=== PATIENT | male | born 1960 | race Caucasian/White ===

== ENCOUNTER 2016-06-23 18:43 | Emergency (ER) | payer BC ==
--- NOTE | 2016-06-23 19:56 | EDM.PDOC ---
ED HPI GENERAL MEDICAL PROBLEM - General Chief Complaint: General Stated Complaint: PT HAS NUMBNESS AND PAIN IN RT LEG,INFECTION Time Seen by Provider: 06/23/16 18:49 Source of Information: Reports: Patient History Limitations: Reports: No limitations - History of Present Illness INITIAL COMMENTS - FREE TEXT/NARRATIVE: Presents reporting some right leg pain. Patient states that the top of the right thigh down to the medial knee is numb and tingling. He has a long history of low back pain and has had three NITA with "instant relief". He was supposed to have an NITA in [place] last week but he didn't have it done because his back was feeling better at the time. He also states that he had a pacemaker insertion last week. He had it done due to left heart failure, ejection fraction of 25%. The procedure and recovery were uncomplicated. This morning he was out with some friends for [place] and felt a little lethargic so he thought he should get that checked out as well. No chest pain, SOB. 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 He has been on both the heart and kidney transplant list. When he was in [place] last week his creatinine was over 4.0. - Related Data Allergies Allergy/AdvReac Type Severity Reaction Status Date / Time No Known Allergies Allergy Verified 02/02/16 18:04 Home Meds: Home Meds Allopurinol [Zyloprim] 100 mg PO DAILY 10/22/15 [History] Enalapril [Vasotec] 20 mg PO BID 10/22/15 [History] Simvastatin [Zocor] 10 mg PO BEDTIME 10/22/15 [History] Aspirin 325 mg PO DAILY 02/02/16 [History] Carvedilol [Coreg] 25 mg PO BID 02/02/16 [History] Fish Oil/[place]-3 Fatty Acids [Fish Oil] 8,000 mg PO DAILY 02/02/16 [History] Furosemide [Lasix] 20 mg PO DAILY 02/02/16 [History] Vilazodone Hydrochloride [Viibryd] 20 mg PO DAILY 02/02/16 [History] Past Medical History HEENT History: Reports: None Cardiovascular History: Reports: High cholesterol, Hypertension, Other (see below) Other Cardiovascular History: Left ventricle weakness, 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 Genitourinary History: Reports: Renal disease Musculoskeletal History: Reports: Gout Psychiatric History: Reports: Anxiety, Depression Other Psychiatric History: on medications but unable to recall Social & Family History - Family History Family Medical History: Noncontributory - Tobacco Use Smoking Status *Q: Never Smoker Second Hand Smoke Exposure: No - Caffeine Use Caffeine Use: Reports: None - Recreational Drug Use Recreational Drug Use: No ED ROS GENERAL - Review of Systems Review Of Systems: See Below Constitutional: Reports: other (lethargy this am). Denies: fever, chills HEENT: Reports: No symptoms Respiratory: Reports: no symptoms. Denies: shortness of breath, cough Cardiovascular: Reports: No symptoms, Blood pressure problem (He states that he usually runs 120/80 since being in the hospital, now 102/71. He is wondering about how much Coreg he is taking.). Denies: Chest pain, Lightheadedness, Palpitations Endocrine: Reports: no symptoms GI/Abdominal: Reports: No symptoms : Reports: no symptoms Musculoskeletal: Reports: back pain (chronic low back pain), other (right anterior theigh tingling and numbness) Skin: Reports: other Neurological: Reports: no symptoms Psychiatric: Reports: No symptoms Hematologic/Lymphatic: Reports: no symptoms Immunologic: Reports: no symptoms ED EXAM, GENERAL - Physical Exam Exam: See Below General Appearance: alert, no apparent distress Ears: normal external exam Nose: normal inspection Throat/Mouth: Normal inspection Head: atraumatic, normocephalic Neck: normal inspection, full range of motion. No: lymphadenopathy (L), lymphadenopathy (R) Respiratory/Chest: no respiratory distress, lungs clear, normal breath sounds, no accessory muscle use Cardiovascular: normal peripheral pulses, regular rate, rhythm, no murmur GI/Abdominal: normal bowel sounds, soft, non tender, no distention Back Exam: normal inspection Extremities: normal inspection Neurological: alert, oriented, no motor/sensory deficits Psychiatric: normal affect, normal mood Skin Exam: Warm, Dry, Intact, Normal color, No rash, Other (The right upper chest and left submammary incisions are clean, soft, dry and granulating without erythema, swelling or exudate) Lymphatic: no adenopathy Course - Vital Signs Last Recorded V/S: Last Vital Signs Temp 35.8 C 06/23/16 18:57 Pulse 77 06/23/16 20:11 Resp 16 06/23/16 20:11 BP 116/62 06/23/16 20:11 Pulse Ox 94 L 06/23/16 20:11 - Orders/Labs/Meds Orders: Active Orders 24 hr Category Date Time Status Sodium Chloride 0.9% [Normal Saline] 250 ml Med 06/23/16 20:30 Active IV STAT Medication Orders Sodium Chloride (Normal Saline) 250 mls @ 999 mls/hr IV STAT JIMENA Labs: Laboratory Tests 06/23/16 06/23/16 06/23/16 Range/Units 19:47 19:47 19:47 WBC 5.98 (4.0-11.0) K/uL RBC 3.65 L (4.50-5.90) M/uL Hgb 11.8 L (13.0-17.0) g/dL Hct 35.6 L (38.0-50.0) % MCV 97.5 (80.0-98.0) fL MCH 32.3 H (27.0-32.0) pg MCHC 33.1 (31.0-37.0) g/dL RDW Std Deviation 45.1 (28.0-62.0) fl RDW Coeff of Marcus 13 (11.0-15.0) % Plt Count 157 (150-400) K/uL MPV 10.30 (7.40-12.00) fL Neut % (Auto) 69.1 (48.0-80.0) % Lymph % (Auto) 20.2 (16.0-40.0) % [place] % (Auto) 6.5 (0.0-15.0) % Eos % (Auto) 3.7 (0.0-7.0) % Baso % (Auto) 0.5 (0.0-1.5) % Neut # 4.1 (1.4-5.7) K/uL Lymph # 1.2 (0.6-2.4) K/uL J[place] # 0.4 (0.0-0.8) K/uL Eos # 0.2 (0.0-0.7) K/uL Baso # 0.0 (0.0-0.1) K/uL Nucleated RBC % 0.0 /100WBC Nucleated RBCs # 0 K/uL Sodium 142 (136-146) mmol/L Potassium 4.9 (3.5-5.1) mmol/L Chloride 110 (98-110) mmol/L Carbon Dioxide 22 (21-31) mmol/L BUN 64 H (6.0-23.0) mg/dL Creatinine 3.8 H (0.6-1.5) mg/dL Est Cr Clr Drug Dosing 23.00 mL/min Estimated GFR (MDRD) 16.7 ml/min Glucose 129 H (60-110) mg/dL Calcium 9.4 (8.8-10.8) mg/dL Total Bilirubin 0.3 (0.1-1.5) mg/dL AST 25 (5-40) IU/L ALT 13 (8-54) IU/L Alkaline Phosphatase 55 (40-150) Troponin I < 0.10 (0.0-0.29) NG/ML Total Protein 6.4 (6.0-8.0) g/dL Albumin 3.3 L (3.5-5.0) g/dL Globulin 3.1 (2.0-3.5) g/dL Albumin/Globulin Ratio 1.1 L (1.3-2.8) Meds: Medications Generic Name Dose Route Start Last Admin Trade Name Freq PRN Reason Stop Dose Admin Sodium Chloride 250 mls @ 999 mls/hr 06/23/16 20:30 Normal Saline IV STAT JIMENA Departure - Departure Time of Disposition: 20:21 Disposition: Home, Self-Care 01 Condition: good Clinical Impression: Lumbar radiculopathy Referrals: PCP,None [Primary Care Provider] - Kishore Garcia MD [Ordering Only Provider] - Forms: ED Department Discharge Additional Instructions: 1. followup with your primary provider to discuss pain clinic and NITA, your medications. - My Orders Last 24 Hours: My Active Orders 06/23/16 20:30 Sodium Chloride 0.9% [Normal Saline] 250 ml IV STAT - Assessment/Plan Last 24 Hours: My Active Orders 06/23/16 20:30 Sodium Chloride 0.9% [Normal Saline] 250 ml IV STAT
[2016-06-23] MEDS ORDERED: Sodium Chloride 0.9% 250 ML IV SCH (20:30)
[2016-06-23 20:49] VITALS: BP 115/70
== END 2016-06-23 20:49 | disposition home or self-care (01) ==
LOC: MW.ED 18:43
DX: M54.16 Radiculopathy, lumbar region (principal); E78.00 Pure hypercholesterolemia, unspecified; I10 Essential (primary) hypertension; Z79.899 Other long term (current) drug therapy; Z79.82 Long term (current) use of aspirin
CPT/HCPCS: 36415; 80053; 84484; 85025; 93005; 99282; 99284-25

== ENCOUNTER 2017-05-12 11:05 | Emergency (ER) | payer OTHER ==
--- NOTE | 2017-05-12 11:56 | EDM.PDOC ---
ED HPI GENERAL MEDICAL PROBLEM - General Chief Complaint: General Stated Complaint: LABS Time Seen by Provider: 05/12/17 11:30 Source of Information: Reports: Patient History Limitations: Reports: No Limitations - History of Present Illness INITIAL COMMENTS - FREE TEXT/NARRATIVE: HISTORY AND PHYSICAL: History of present illness: Patient is a 87-year-old male who presents to the emergency room today with complaints of abnormal lab results that he received yesterday. Patient states that at [facility] he did see a soil expert, traveling here from Dr.Reduko Rajan due to renal failure, cardiomyopathy, IgA nephropathy. His BUN/creatinine and creatinine were abnormal. He was instructed to increase his Lasix from 20 mg to 40 mg and come to the emergency room for reevaluation. Patient states that he did take his Lasix today but only 20 mg, did not increase his dose yet. Patient currently has no complaints other than pruritus which she states has been going on for "months". He states he is voiding numerous times per day, having regular bowel movements. Denies any abdominal pain, flank pain, nausea, vomiting or diarrhea. Review of systems: As per history of present illness and below otherwise all systems reviewed and negative. Past medical history: As per history of present illness and as reviewed below otherwise noncontributory. Surgical history: As per history of present illness and as reviewed below otherwise noncontributory. Social history: No reported history of drug or alcohol abuse. Family history: As per history of present illness and as reviewed below otherwise noncontributory. Physical exam: HEENT: Atraumatic, normocephalic, pupils reactive, negative for conjunctival pallor or scleral icterus, mucous membranes moist, throat clear, neck supple, nontender, trachea midline. Lungs: Clear to auscultation, breath sounds equal bilaterally, chest nontender. Heart: S1S2, regular, negative for clicks, rubs, or JVD. Abdomen: Soft, obese, nontender. He has an umbilical hernia, normal variance. Negative for masses or hepatosplenomegaly. Negative for costovertebral tenderness. Pelvis: Stable nontender. Genitourinary: Deferred. Rectal: Deferred. Extremities: Atraumatic, negative for cords or calf pain. Neurovascular unremarkable. Neuro: Awake, alert, oriented. Cranial nerves II through XII unremarkable. Cerebellum unremarkable. Motor and sensory unremarkable throughout. Exam nonfocal. He reports that he feels fine, does not have any symptoms other than itching which is going on the past several months. After labs had been drawn and reviewed the results with him, he now brings forth information that the Welding Operator told him that his primary concern was his potassium. "He told me that it was a lethal levels". Potassium today is at 5.1, the patient states it was [address] Luu is aware of this patient and has agreed to talk with the patient and try to get a hold of the Welding Operator to plan further care. Dr. Luu was able to get a hold of Dr. Cueto, the soil expert, who is here at our clinic today as a traveling physician. He recommends the following which was also explained to the patient: 1. Start taking hydralazine 50 mg 1 tab twice a day 2. Low potassium diet 3. Discontinue your Enalapril 4. Start Lasix 40 mg once daily 5. Need to have a follow-up appointment with her soil expert in [place] in 2 weeks. Patient voices understanding and is agreeable to plan of care. He denies any further questions at this time. He will be discharged home. Diagnostics: CBC, CMP, UA and a 2 view chest x-ray Therapeutics: Lasix IV Impression: Renal Failure Plan: 1. Start taking hydralazine 50 mg 1 tab twice a day 2. Low potassium diet 3. Discontinue your Enalapril 4. Start Lasix 40 mg once daily 5. Need to have a follow-up appointment with her soil expert in [place] in 2 weeks. Please call and set up this appointment time and set up this appointment. 6. As a discussed please return to the emergency room as needed. Definitive disposition and diagnosis as appropriate pending reevaluation and review of above. - Related Data Allergies Allergy/AdvReac Type Severity Reaction Status Date / Time No Known Allergies Allergy Verified 05/12/17 11:38 Home Meds: Home Meds Allopurinol [Zyloprim] 100 mg PO DAILY 10/22/15 [History] Enalapril [Vasotec] 20 mg PO BID 10/22/15 [History] Simvastatin [Zocor] 10 mg PO BEDTIME 10/22/15 [History] Aspirin 325 mg PO DAILY 02/02/16 [History] Carvedilol [Coreg] 25 mg PO BID 02/02/16 [History] Fish Oil/[place]-3 Fatty Acids [Fish Oil] 8,000 mg PO DAILY 02/02/16 [History] Furosemide [Lasix] 20 mg PO DAILY 02/02/16 [History] Vilazodone [Viibryd] 20 mg PO DAILY 02/02/16 [History] Past Medical History HEENT History: Reports: None Cardiovascular History: Reports: High Cholesterol, Hypertension, Other (See Below) Other Cardiovascular History: Left ventricle weakness, 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 Genitourinary History: Reports: Renal Disease Other Genitourinary History: bergers disease 1997 Musculoskeletal History: Reports: Gout Psychiatric History: Reports: Anxiety, Depression Other Psychiatric History: on medications but unable to recall Hematologic History: Reports: None Immunologic History: Reports: None - Infectious Disease History Infectious Disease History: Reports: None - Past Surgical History Head Surgeries/Procedures: Reports: None Social & Family History - Family History Family Medical History: Noncontributory - Tobacco Use Smoking Status *Q: Never Smoker Second Hand Smoke Exposure: No - Caffeine Use Caffeine Use: Reports: None - Recreational Drug Use Recreational Drug Use: No ED ROS GENERAL - Review of Systems Review Of Systems: ROS reveals no pertinent complaints other than HPI. ED EXAM, GENERAL - Physical Exam Exam: See Below (See dictation) Course - Vital Signs Last Recorded V/S: Last Vital Signs Temp 97.2 F 05/12/17 11:33 Pulse 83 05/12/17 11:33 Resp 18 05/12/17 11:33 BP 123/78 05/12/17 11:33 Pulse Ox 93 L 05/12/17 11:33 - Orders/Labs/Meds Orders: Active Orders 24 hr Category Date Time Status Admission Status [Patient Status] [ADT] Stat ADT 05/12/17 12:29 Active Labs: Laboratory Tests 05/12/17 05/12/17 05/12/17 Range/Units 11:38 11:38 11:52 WBC 5.04 (4.0-11.0) K/uL RBC 3.74 L (4.50-5.90) M/uL Hgb 12.4 L (13.0-17.0) g/dL Hct 36.8 L (38.0-50.0) % MCV 98.4 H (80.0-98.0) fL MCH 33.2 H (27.0-32.0) pg MCHC 33.7 (31.0-37.0) g/dL RDW Std Deviation 47.1 (28.0-62.0) fl RDW Coeff of Marcus 13 (11.0-15.0) % Plt Count 147 L (150-400) K/uL MPV 10.20 (7.40-12.00) fL Neut % (Auto) 59.5 (48.0-80.0) % Lymph % (Auto) 28.0 (16.0-40.0) % [place] % (Auto) 7.3 (0.0-15.0) % Eos % (Auto) 4.6 (0.0-7.0) % Baso % (Auto) 0.6 (0.0-1.5) % Neut # (Auto) 3.0 (1.4-5.7) K/uL Lymph # (Auto) 1.4 (0.6-2.4) K/uL Clinch # (Auto) 0.4 (0.0-0.8) K/uL Eos # (Auto) 0.2 (0.0-0.7) K/uL Baso # (Auto) 0.0 (0.0-0.1) K/uL Nucleated RBC % 0.0 /100WBC Nucleated RBCs # 0 K/uL Sodium 141 (136-146) mmol/L Potassium 5.1 (3.5-5.1) mmol/L Chloride 111 H (98-110) mmol/L Carbon Dioxide 21 (21-31) mmol/L BUN 57 H (6.0-23.0) mg/dL Creatinine 4.4 H (0.6-1.5) mg/dL Est Cr Clr Drug Dosing 19.59 mL/min Estimated GFR (MDRD) 14.0 ml/min Glucose 101 (60-110) mg/dL Calcium 9.4 (8.8-10.8) mg/dL Total Bilirubin 0.3 (0.1-1.5) mg/dL AST 12 (5-40) IU/L ALT 17 (8-54) IU/L Alkaline Phosphatase 53 (40-150) Total Protein 5.9 L (6.0-8.0) g/dL Albumin 3.4 L (3.5-5.0) g/dL Globulin 2.5 (2.0-3.5) g/dL Albumin/Globulin Ratio 1.4 (1.3-2.8) Urine Color YELLOW Urine Appearance CLEAR Urine pH 6.0 (5.0-8.0) Ur Specific [place] 1.020 (1.001-1.035) Urine Protein 100 (NEGATIVE) mg/dL Urine Glucose (UA) NEGATIVE (NEGATIVE) mg/dL Urine Ketones NEGATIVE (NEGATIVE) mg/dL Urine Occult Blood SMALL H (NEGATIVE) Urine Nitrite NEGATIVE (NEGATIVE) Urine Bilirubin NEGATIVE (NEGATIVE) Urine Urobilinogen 0.2 (<2.0) EU/dL Ur Leukocyte Esterase NEGATIVE (NEGATIVE) Urine RBC 0-1 (0-2/HPF) Urine WBC 0-1 (0-5/HPF) Ur Epithelial Cells RARE (NONE-FEW) Urine Bacteria RARE (NEGATIVE) Meds: Medications Discontinued Medications Generic Name Dose Route Start Last Admin Trade Name Neema PRN Reason Stop Dose Admin Furosemide 40 mg 05/12/17 12:28 05/12/17 12:58 Lasix IVPUSH 05/12/17 12:29 40 mg NOW ONE Administration Departure - Departure Time of Disposition: 13:17 Disposition: Home, Self-Care 01 Clinical Impression: Abnormal laboratory test result Renal failure Qualifiers: Renal failure chronicity: unspecified chronicity Qualified Code(s): N19 - Unspecified kidney failure - Discharge Information Referrals: Kishore Garcia MD [Primary Care Provider] - Forms: ED Department Discharge Additional Instructions: My general discharge The following information is given to patients seen in the emergency department who are being discharged to home. This information is to outline your options for follow-up care. We provide all patients seen in our emergency department with a follow-up referral. The need for follow-up, as well as the timing and circumstances, are variable depending upon the specifics of your emergency department visit. If you don't have a primary care physician on staff, we will provide you with a referral. We always advise you to contact your personal physician following an emergency department visit to inform them of the circumstance of the visit and for follow-up with them and/or the need for any referrals to a consulting specialist. The emergency department will also refer you to a specialist when appropriate. This referral assures that you have the opportunity for follow-up care with a specialist. All of these measure are taken in an effort to provide you with optimal care, which includes your follow-up. Under all circumstances we always encourage you to contact your private physician who remains a resource for coordinating your care. When calling for follow-up care, please make the office aware that this follow-up is from your recent emergency room visit. If for any reason you are refused follow-up, please contact the [facility] at and asked to speak to the emergency department charge nurse. [facility] [address] [place] [address] Per your Welding Operator: 1. Start taking hydralazine 50 mg 1 tab twice a day 2. Low potassium diet 3. Discontinue your Enalapril 4. Start Lasix 40 mg once daily 5. Need to have a follow-up appointment with her soil expert in [place] in 2 weeks. Please call and set up this appointment time and set up this appointment. 6. As a discussed please return to the emergency room as needed. - My Orders Last 24 Hours: My Active Orders 05/12/17 12:29 Admission Status [Patient Status] [ADT] Stat - Assessment/Plan Last 24 Hours: My Active Orders 05/12/17 12:29 Admission Status [Patient Status] [ADT] Stat
[2017-05-12] MEDS ORDERED: Furosemide 40 MG/4 ML VIAL IVPUSH ONE (12:28)
--- NOTE | 2017-05-12 12:59 | CR ---
EXAMINATION: Two-view chest (PA and Lateral views). HISTORY: Shortness of breath. FINDINGS: The trachea is midline. The cardiomediastinal silhouette is within normal limits. No pulmonary infilt rates, effusions or pneumothorax. Left-sided subcutaneous AICD. Osseous structures appear unremarkable. IMPRESSION: No acute cardiopulmonary process.
[2017-05-12 13:38] VITALS: BP 123/70
== END 2017-05-12 13:30 | disposition home or self-care (01) ==
LOC: MW.ED 11:05
DX: N19 Unspecified kidney failure (principal); R94.4 Abnormal results of kidney function studies; I10 Essential (primary) hypertension; E78.00 Pure hypercholesterolemia, unspecified; Z79.899 Other long term (current) drug therapy; Z79.82 Long term (current) use of aspirin
CPT/HCPCS: 36415; 71046; 80053; 81001; 85025; 96374; 99283; J1940; 99284

== ENCOUNTER 2019-04-11 15:50 | Emergency (ER) | payer MEDICARE ==
[2019-04-11] MEDS ORDERED: Sodium Chloride 0.9% 1,000 ML IV ONE (15:57)
--- NOTE | 2019-04-11 15:58 | EDM.PDOC ---
ED HPI GENERAL MEDICAL PROBLEM - General Chief Complaint: General Stated Complaint: SENT FROM THE CLINIC--LOW BP Time Seen by Provider: 04/11/19 15:58 Source of Information: Reports: Patient, Provider - History of Present Illness INITIAL COMMENTS - FREE TEXT/NARRATIVE: HISTORY AND PHYSICAL: History of present illness: [pt presents from dialysis clinic with complaint of light head/ dizzy, dialysis performed yesterday, patient had taken bp medication just captain assistant at the clinic dialysis clinic directed him up hto ED as he had low BP and light headed, I did provide fluid bolus which improved BP, orthostatics on chart patient to follow up with dialysis clinic in am for scheduled treatment no f/n/v/c/s/ ] Review of systems: As per history of present illness and below otherwise all systems reviewed and negative. Past medical history: As per history of present illness and as reviewed below otherwise noncontributory. Surgical history: As per history of present illness and as reviewed below otherwise noncontributory. Social history: No reported history of drug or alcohol abuse. Family history: As per history of present illness and as reviewed below otherwise noncontributory. Physical exam: HEENT: Atraumatic, normocephalic, pupils reactive, negative for conjunctival pallor or scleral icterus, mucous membranes moist, throat clear, neck supple, nontender, trachea midline. Lungs: Clear to auscultation, breath sounds equal bilaterally, chest nontender. Heart: S1S2, regular, negative for clicks, rubs, or JVD. Abdomen: Soft, nondistended, nontender. Negative for masses or hepatosplenomegaly. Negative for costovertebral tenderness. Pelvis: Stable nontender. Genitourinary: Deferred. Rectal: Deferred. Extremities: Atraumatic, negative for cords or calf pain. Neurovascular unremarkable. Neuro: Awake, alert, oriented. Cranial nerves II through XII unremarkable. Cerebellum unremarkable. Motor and sensory unremarkable throughout. Exam nonfocal. Diagnostics: [cbc. bmp lactic acid ] Therapeutics: NS [pt offered admission and refused, will follow with dialysis clinic in am ] Impression: hypotension-resolved dehydration [chronic renal failure ] Definitive disposition and diagnosis as appropriate pending reevaluation and review of above. - Related Data Allergies Allergy/AdvReac Type Severity Reaction Status Date / Time No Known Allergies Allergy Verified 04/11/19 15:58 Home Meds: Home Meds Allopurinol [Zyloprim] 100 mg PO DAILY 10/22/15 [History] Simvastatin [Zocor] 10 mg PO BEDTIME 10/22/15 [History] Aspirin 325 mg PO DAILY 02/02/16 [History] Carvedilol [Coreg] 25 mg PO BID 02/02/16 [History] Fish Oil/[place]-3 Fatty Acids [Fish Oil] 8,000 mg PO DAILY 02/02/16 [History] Furosemide [Lasix] 40 mg PO DAILY 02/02/16 [History] Vilazodone [Viibryd] 20 mg PO DAILY 02/02/16 [History] buPROPion [buPROPion XL] 150 mg PO DAILY 04/11/19 [History] hydrALAZINE [Apresoline] 50 mg PO BID 04/11/19 [History] Past Medical History HEENT History: Reports: None Cardiovascular History: Reports: High Cholesterol, Hypertension, Other (See Below) Other Cardiovascular History: Left ventricle weakness, 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 Genitourinary History: Reports: Renal Disease Other Genitourinary History: bergers disease 1997 Musculoskeletal History: Reports: Gout Psychiatric History: Reports: Anxiety, Depression Other Psychiatric History: on medications but unable to recall Hematologic History: Reports: None Immunologic History: Reports: None - Infectious Disease History Infectious Disease History: Reports: None - Past Surgical History Head Surgeries/Procedures: Reports: None Social & Family History - Family History Family Medical History: Noncontributory - Caffeine Use Caffeine Use: Reports: None ED ROS GENERAL - Review of Systems Review Of Systems: See Below ED EXAM, GENERAL - Physical Exam Exam: See Below Course - Vital Signs Last Recorded V/S: Last Vital Signs Temp 96.1 F 04/11/19 15:56 Pulse 71 04/11/19 15:56 Resp 18 04/11/19 15:56 BP 91/63 04/11/19 15:56 Pulse Ox 93 L 04/11/19 15:56 Orthostatic Blood Pressure [ 104/61 Standing] Orthostatic Blood Pressure [ 101/68 Sitting] Orthostatic Blood Pressure [ 111/65 Supine] - Orders/Labs/Meds Orders: Active Orders 24 hr Category Date Time Status EKG Documentation Completion [RC] STAT Care 04/11/19 16:02 Active Labs: Laboratory Tests 12/04/11/19 04/11/19 Range/Units 16:04 16:04 16:04 WBC 7.99 (4.0-11.0) K/uL RBC 4.06 L (4.50-5.90) M/uL Hgb 14.0 (13.0-17.0) g/dL Hct 42.6 (38.0-50.0) % MCV 104.9 H (80.0-98.0) fL MCH 34.5 H (27.0-32.0) pg MCHC 32.9 (31.0-37.0) g/dL RDW Std Deviation 51.1 (28.0-62.0) fl RDW Coeff of Marcus 13 (11.0-15.0) % Plt Count 198 (150-400) K/uL MPV 10.20 (7.40-12.00) fL Neut % (Auto) 70.7 (48.0-80.0) % Lymph % (Auto) 20.2 (16.0-40.0) % [place] % (Auto) 7.4 (0.0-15.0) % Eos % (Auto) 1.3 (0.0-7.0) % Baso % (Auto) 0.4 (0.0-1.5) % Neut # (Auto) 5.7 (1.4-5.7) K/uL Lymph # (Auto) 1.6 (0.6-2.4) K/uL [place] # (Auto) 0.6 (0.0-0.8) K/uL Eos # (Auto) 0.1 (0.0-0.7) K/uL Baso # (Auto) 0.0 (0.0-0.1) K/uL Nucleated RBC % 0.0 /100WBC Nucleated RBCs # 0 K/uL Lactate 2.0 (0.20-2.00) mmol/L Sodium 143 (136-148) mmol/L Potassium 4.2 (3.5-5.1) mmol/L Chloride 103 (98-107) mmol/L Carbon Dioxide 29.3 (21.0-32.0) mmol/L BUN 50 H (7.0-18.0) mg/dL Creatinine 6.4 H (0.8-1.3) mg/dL Est Cr Clr Drug Dosing 13.15 mL/min Estimated GFR (MDRD) 9.0 ml/min Glucose 161 H (74-106) mg/dL Calcium 10.1 (8.5-10.1) mg/dL Meds: Medications Discontinued Medications Generic Name Dose Route Start Last Admin Trade Name Freq PRN Reason Stop Dose Admin Sodium Chloride 1,000 mls @ 999 mls/hr 04/11/19 15:57 04/11/19 16:05 Normal Saline IV 04/11/19 16:57 999 mls/hr STAT ONE Administration Departure - Departure Time of Disposition: 17:08 Disposition: Home, Self-Care 01 Condition: Good Clinical Impression: Dehydration, Medication adverse effect, Hypotension - Discharge Information Referrals: PCP,Unknown [Primary Care Provider] - Forms: ED Department Discharge Additional Instructions: The following information is given to patients seen in the emergency department who are being discharged to home. This information is to outline your options for follow-up care. We provide all patients seen in our emergency department with a follow-up referral. The need for follow-up, as well as the timing and circumstances, are variable depending upon the specifics of your emergency department visit. If you don't have a primary care physician on staff, we will provide you with a referral. We always advise you to contact your personal physician following an emergency department visit to inform them of the circumstance of the visit and for follow-up with them and/or the need for any referrals to a consulting specialist. The emergency department will also refer you to a specialist when appropriate. This referral assures that you have the opportunity for follow-up care with a specialist. All of these measure are taken in an effort to provide you with optimal care, which includes your follow-up. Under all circumstances we always encourage you to contact your private physician who remains a resource for coordinating your care. When calling for follow-up care, please make the office aware that this follow-up is from your recent emergency room visit. If for any reason you are refused follow-up, please contact the [facility] emergency department at and asked to speak to the emergency department charge nurse. Sepsis Event Note - Evaluation Sepsis Screening Result: No Definite Risk - Focused Exam Vital Signs: Vital Signs Temp Pulse Resp BP Pulse Ox 04/11/19 15:56 96.1 F 71 18 91/63 93 L Date Exam was Performed: 04/11/19 Time Exam was Performed: 17:05 - My Orders Last 24 Hours: My Active Orders 04/11/19 16:02 EKG Documentation Completion [RC] STAT - Assessment/Plan Last 24 Hours: My Active Orders 04/11/19 16:02 EKG Documentation Completion [RC] STAT
--- NOTE | 2019-04-11 16:39 | CR ---
Chest: AP view of the chest was obtained. Comparison: Prior chest x-ray of 05/12/17. Heart is slightly enlarged. AICD is noted. Lungs are clear with no acute parenchymal change. Bony structures are grossly intact. Impression: 1. Findings as noted above. 2. Nothing acute is seen. Diagnostic code #2 This report was dictated in [place] Standard Time
[2019-04-11 16:43] LABS: CARBON DIOXIDE,CO2 29.3 mmol/L (21.0-32.0); POTASSIUM,K 4.2 mmol/L (3.5-5.1)
[2019-04-11 19:01] VITALS: BP 121/78; PULSE 86
== END 2019-04-11 17:35 | disposition home or self-care (01) ==
LOC: MW.ED 15:50
DX: I95.2 Hypotension due to drugs (principal); E86.0 Dehydration; I12.9 Hypertensive chronic kidney disease with stage 1 through stage 4 chronic kidney disease, or unspecified chronic kidney disease; N18.9 Chronic kidney disease, unspecified; F41.9 Anxiety disorder, unspecified; F32.9 Major depressive disorder, single episode, unspecified; E78.00 Pure hypercholesterolemia, unspecified; Z79.82 Long term (current) use of aspirin; Z79.899 Other long term (current) drug therapy
CPT/HCPCS: 36415; 71045; 80048; 83605; 85025; 93005; 96360; 99285; J7030

== ENCOUNTER 2020-01-08 09:54 | Emergency (ER) | payer MEDICARE ==
[2020-01-08 10:05] VITALS: PULSE 86
--- NOTE | 2020-01-08 10:14 | EDM.PDOC ---
ED HPI GENERAL MEDICAL PROBLEM - General Chief Complaint: Lower Extremity Injury/Pain Stated Complaint: RIGHT KNEE PAIN Time Seen by Provider: 01/08/20 10:09 Source of Information: Reports: Patient History Limitations: Reports: No Limitations - History of Present Illness INITIAL COMMENTS - FREE TEXT/NARRATIVE: HISTORY AND PHYSICAL: History of present illness: Patient is a 60-year-old male who presents to the ED today with concern of right knee pain over the last 3 to 4 days. Patient states he did not injure his knee and has noticed this because become more red, painful, and warm to the touch. Patient states that he is on dialysis on Wednesdays and Fridays. Patient states that on Wednesday he was told his potassium was high but since then has had 1 additional dialysis. Patient states he has not had any symptoms other than right knee pain. Patient states he has not taken anything for his symptoms. Patient denies fever, chills, chest pain, shortness of breath, or cough. Denies headache, neck stiff ness, change in vision, syncope, or near syncope. Denies nausea, vomiting, abdominal pain, diarrhea, constipation, or dysuria. Has not noted any blood in urine or stool. Patient has been eating and drinking appropriately. Review of systems: As per history of present illness and below otherwise all systems reviewed and negative. Past medical history: As per history of present illness and as reviewed below otherwise noncontributory. Surgical history: As per history of present illness and as reviewed below otherwise noncontributory. Social history: See social history for further information Family history: As per history of present illness and as reviewed below otherwise noncontributory. Physical exam: General: Patient is alert, oriented, and in no acute distress. Patient sitting comfortably on exam table. HEENT: Atraumatic, normocephalic, pupils equal and reactive bilaterally, negative for conjunctival pallor or scleral icterus, mucous membranes moist, TMs normal bilaterally, throat clear, neck supple, nontender, trachea midline. No drooling or trismus noted. No meningeal signs. No hot potato voice noted. Lungs: Clear to auscultation, breath sounds equal bilaterally, chest nontender. Heart: S1S2, regular rate and rhythm without overt murmur Abdomen: Soft, nondistended, nontender. Negative for masses or hepatosplenomegaly. Negative for costovertebral tenderness. Pelvis: Stable nontender. Genitourinary: Deferred. Rectal: Deferred. Skin: Intact, warm, dry. No lesions or rashes noted. Extremities: Overlying the right knee is a 5 to 6 cm irregular [place] of erythema that is warm to the touch. Patient does have significant pain with range of motion of the right knee. Dorsalis pedis and posterior tibial pulses are grossly intact with capillary refill less than 2 seconds. Otherwise, atraumatic, negative for cords or calf pain. Neurovascular unremarkable. Neuro: Awake, alert, oriented. Cranial nerves II through XII unremarkable. Cerebellum unremarkable. Motor and sensory unremarkable throughout. Exam nonfocal. Notes: 12:00: We do not have orthopedics precision assembler today. [facility] contacted and Dr. Lopez, orthopedic precision assembler will return my call. 13:00: Dr. Lopez, orthopedic [place], has returned my call and accepting of transfer for r/o septic arthritis. Dr. Maxwell, emergency room aware of transfer. Patient able to drive private vehicle and appears well, non toxic. Voices understanding and is agreeable to plan of care. Denies any further questions or concerns at this time. Diagnostics: CBC, CMP, blood cultures x2, lactate, procalcitonin, knee x-ray, (Fine needle aspirate performed by myself and Dr. Nichols without ability to obtain a sample) Therapeutics: Lidocaine Impression: Right knee erythema r/o septic arthritis Plan: Transfer to Dr. Lopez/Dr. Maxwell via private vehicle Definitive disposition and diagnosis as appropriate pending reevaluation and review of above. right knee Pain Score (Numeric/FACES): 9 - Related Data Allergies Allergy/AdvReac Type Severity Reaction Status Date / Time No Known Allergies Allergy Verified 01/08/20 10:05 Home Meds: Home Meds Allopurinol [Zyloprim] 100 mg PO DAILY PRN 10/22/15 [History] Simvastatin [Zocor] 10 mg PO BEDTIME 10/22/15 [History] Furosemide [Lasix] 40 mg PO DAILY 02/02/16 [History] carvediloL [Coreg] 25 mg PO BID 02/02/16 [History] buPROPion [buPROPion XL] 150 mg PO DAILY 04/11/19 [History] hydrALAZINE [Apresoline] 50 mg PO BID 04/11/19 [History] Past Medical History HEENT History: Reports: None Cardiovascular History: Reports: Congenital Septal Defect, Heart Failure, High Cholesterol, Hypertension, Stents, Other (See Below) Other Cardiovascular History: Left ventricle weakness, Genitourinary History: Reports: Renal Disease Other Genitourinary History: bergers disease 1997 Musculoskeletal History: Reports: Gout Psychiatric History: Reports: Anxiety, Depression Other Psychiatric History: on medications but unable to recall Hematologic History: Reports: None Immunologic History: Reports: None - Infectious Disease History Infectious Disease History: Reports: None - Past Surgical History Head Surgeries/Procedures: Reports: None Cardiovascular Surgical History: Reports: Other (See Below) Other Cardiovascular Surgeries/Procedures: Defibrillator Social & Family History - Family History Family Medical History: Noncontributory - Tobacco Use Smoking Status *Q: Never Smoker - Caffeine Use Caffeine Use: Reports: None - Recreational Drug Use Recreational Drug Use: No Review of Systems - Review of Systems Review Of Systems: Comprehensive ROS is negative, except as noted in HPI. ED EXAM, GENERAL - Physical Exam Exam: See Below (see dictation) ED JOINT ASPIRATION PROCEDURE - Joint Apsiration/Arthrocentesis Site: right knee Skin prep: Chlorhexidine (Hibiciens), Providone-Iodine (Betadine), Sterile Drape Local anesthesia: Lidocaine: 1% Plain Local Anesthetic Volume: Other (15) Aspiration needle size: 18g Aspirate appearance: other (none) Aspirate amount in cc's: 0 Dressing: none Complications: No Course - Vital Signs Last Recorded V/S: Last Vital Signs Temp 97.8 F 01/08/20 13:05 Pulse 86 01/08/20 13:05 Resp 16 01/08/20 13:05 BP 123/80 01/08/20 13:05 Pulse Ox 93 L 01/08/20 13:05 - Orders/Labs/Meds Orders: Active Orders 24 hr Category Date Time Status EKG Documentation Completion [RC] STAT Care 01/08/20 10:25 Active CELL COUNT,BODY FLUID [BF] Stat Lab 01/08/20 10:31 Ordered CRYSTALS,BODY FLUID [BF] Stat Lab 01/08/20 10:33 Ordered CULTURE BLOOD [BC] Stat Lab 01/08/20 10:46 Received CULTURE BLOOD [BC] Stat Lab 01/08/20 11:00 Received CULTURE BODY FLUID + SMEAR [RM] Stat Lab 01/08/20 10:30 Ordered PROCALCITONIN [REF] Stat Lab 01/08/20 10:46 Received Blood Culture x2 Reflex Set [OM.PC] Stat Oth 01/08/20 10:26 Ordered Labs: Laboratory Tests 01/08/20 01/08/20 01/08/20 Range/Units 10:46 10:46 10:46 WBC 6.35 (4.0-11.0) K/uL RBC 3.81 L (4.50-5.90) M/uL Hgb 12.9 L (13.0-17.0) g/dL Hct 40.3 (38.0-50.0) % MCV 105.8 H (80.0-98.0) fL MCH 33.9 H (27.0-32.0) pg MCHC 32.0 (31.0-37.0) g/dL RDW Std Deviation 51.1 (28.0-62.0) fl RDW Coeff of [place] 13 (11.0-15.0) % Plt Count 154 (150-400) K/uL MPV 10.50 (7.40-12.00) fL Neut % (Auto) 68.4 (48.0-80.0) % Lymph % (Auto) 20.8 (16.0-40.0) % [place] % (Auto) 8.3 (0.0-15.0) % Eos % (Auto) 2.2 (0.0-7.0) % Baso % (Auto) 0.3 (0.0-1.5) % Neut # (Auto) 4.3 (1.4-5.7) K/uL Lymph # (Auto) 1.3 (0.6-2.4) K/uL [place] # (Auto) 0.5 (0.0-0.8) K/uL Eos # (Auto) 0.1 (0.0-0.7) K/uL Baso # (Auto) 0.0 (0.0-0.1) K/uL Nucleated RBC % 0.0 /100WBC Nucleated RBCs # 0 K/uL Lactate 1.2 (0.20-2.00) mmol/L Sodium 139 (136-148) mmol/L Potassium 4.8 (3.5-5.1) mmol/L Chloride 99 (98-107) mmol/L Carbon Dioxide 27.7 (21.0-32.0) mmol/L BUN 90 H (7.0-18.0) mg/dL Creatinine 11.4 H (0.8-1.3) mg/dL Est Cr Clr Drug Dosing 7.29 mL/min Estimated GFR (MDRD) 4.6 ml/min Glucose 108 H (74-106) mg/dL Calcium 9.3 (8.5-10.1) mg/dL Total Bilirubin 0.4 (0.2-1.0) mg/dL AST 8 L (15-37) IU/L ALT 20 (14-63) IU/L Alkaline Phosphatase 73 (46-116) U/L Total Protein 7.0 (6.4-8.2) g/dL Albumin 3.6 (3.4-5.0) g/dL Globulin 3.4 (2.6-4.0) g/dL Albumin/Globulin Ratio 1.1 (0.9-1.6) Meds: Medications Discontinued Medications Generic Name Dose Route Start Last Admin Trade Name Freq PRN Reason Stop Dose Admin Lidocaine HCl 5 ml 01/08/20 10:43 01/08/20 12:12 Xylocaine-Mpf 1% INJECT 01/08/20 10:44 Not Given ONETIME ONE Lidocaine HCl 10 ml 01/08/20 11:22 01/08/20 12:11 Xylocaine-Mpf 1% INJECT 01/08/20 11:23 10 ml ONETIME ONE Administration Departure - Departure Time of Disposition: 13:30 Disposition: DC/Tfer to Acute Hospital 02 Clinical Impression: Knee pain, right Qualifiers: Chronicity: acute Qualified Code(s): M25.561 - Pain in right knee - Discharge Information Referrals: Kishore Garcia MD [Primary Care Provider] - Forms: ED Department Discharge Sepsis Event Note (ED) - Evaluation Sepsis Screening Result: No Definite Risk - Focused Exam Vital Signs: Vital Signs Temp Pulse Resp BP Pulse Ox 01/08/20 13:05 97.8 F 86 16 123/80 93 L 01/08/20 10:02 96.3 F L 86 16 115/73 96 - My Orders Last 24 Hours: My Active Orders 01/08/20 10:25 EKG Documentation Completion [RC] STAT 01/08/20 10:26 Blood Culture x2 Reflex Set [OM.PC] Stat 01/08/20 10:30 CULTURE BODY FLUID + SMEAR [RM] Stat 01/08/20 10:31 CELL COUNT,BODY FLUID [BF] Stat 01/08/20 10:33 CRYSTALS,BODY FLUID [BF] Stat 01/08/20 10:46 CULTURE BLOOD [BC] Stat PROCALCITONIN [REF] Stat 01/08/20 11:00 CULTURE BLOOD [BC] Stat - Assessment/Plan Last 24 Hours: My Active Orders 01/08/20 10:25 EKG Documentation Completion [RC] STAT 01/08/20 10:26 Blood Culture x2 Reflex Set [OM.PC] Stat 01/08/20 10:30 CULTURE BODY FLUID + SMEAR [RM] Stat 01/08/20 10:31 CELL COUNT,BODY FLUID [BF] Stat 01/08/20 10:33 CRYSTALS,BODY FLUID [BF] Stat 01/08/20 10:46 CULTURE BLOOD [BC] Stat PROCALCITONIN [REF] Stat 01/08/20 11:00 CULTURE BLOOD [BC] Stat
[2020-01-08 11:29] LABS: CARBON DIOXIDE,CO2 27.7 mmol/L (21.0-32.0); POTASSIUM,K 4.8 mmol/L (3.5-5.1)
--- NOTE | 2020-01-08 12:24 | CR ---
Right knee: AP, lateral and sunrise patellar views were obtained of the right knee. Comparison: No prior knee exam. Medial and lateral joint compartments maintained in height. No joint effusion is seen. Patellofemoral joint appears normal. No acute fracture or other bony abnormality is appreciated. Impression: 1. No abnormality is seen on 3 view right knee exam. Diagnostic code #1 This report was dictated in MDT
[2020-01-08 13:06] VITALS: BP 123/80
== END 2020-01-08 13:32 ==
LOC: MW.ED 09:54
DX: M25.561 Pain in right knee (principal); I11.0 Hypertensive heart disease with heart failure; I50.9 Heart failure, unspecified; M10.9 Gout, unspecified; F32.9 Major depressive disorder, single episode, unspecified; F41.9 Anxiety disorder, unspecified; Z79.899 Other long term (current) drug therapy; Z95.5 Presence of coronary angioplasty implant and graft
CPT/HCPCS: 20610; 36415; 73562; 80053; 83605; 84145; 85025; 87040; 93005; 99284; J2001; 99283

== ENCOUNTER 2020-12-09 11:19 | Emergency (ER) | payer MEDICARE ==
[2020-12-09] MEDS ORDERED: Albuterol/Ipratropium 3.0-0.5 MG/3 ML Neb Soln ONE (11:25)
[2020-12-09] MEDS ORDERED: Albuterol/Ipratropium 3.0-0.5 MG/3 ML Neb Soln NEB ONE (11:29)
--- NOTE | 2020-12-09 11:35 | PCM.EKG ---
#1 Interpretation EKG Date: 12/09/20 Time: 11:19 Rhythm: NSR Rate (Beats/Min): 97 [place]: Normal P-Wave: Present QRS: Normal ST-T: Normal QT: Normal Comparison: No Change (09/11/20) EKG Interpretation Comments: Sinus Rhythm
[2020-12-09] MEDS ORDERED: Albuterol 0.083% 2.5 MG/3 ML Neb Soln NEB STA (11:55)
--- NOTE | 2020-12-09 12:12 | CR ---
INDICATION: Dyspnea. COMPARISON: Chest radiograph April 11, 2019. TECHNIQUE: Portable AP chest. FINDINGS: Normal size cardiac silhouette. Clear lung [place] with no evidence of acute pneumonic infiltrates or CHF. No pneumothorax or pleural effusion. No interval change. IMPRESSION: No acute pathology . Dictated by Evette Patterson MD @ 12/09/2020 12:11:[address] Evette Patterson @ Dec 09 2020 12:11PM
--- NOTE | 2020-12-09 12:23 | EDM.PDOC ---
ED HPI GENERAL MEDICAL PROBLEM - General Chief Complaint: Chest Pain Stated Complaint: CHEST PAIN SOB Time Seen by Provider: 12/09/20 11:26 - History of Present Illness INITIAL COMMENTS - FREE TEXT/NARRATIVE: CHIEF COMPLAINT(S): Shortness of breath HISTORY OF PRESENT ILLNESS: This is a 60-year-old man with a past medical history of CHF, end-stage renal disease on hemodialysis, hyperlipidemia who comes to the emergency department with a chief complaint of shortness of breath. The patient states that starting since last night he has been experiencing shortness of breath. He states that he has exertional dyspnea and has had a cough for approximately 5 days. He states that he thought he had his summer cold. He denies any fevers or chills, Covid exposure. He states that he has had his Covid vaccines. He denies any productive cough. He denies any chest pain, lower extremity edema. He denies any recent travel, recent surgery or prior history of DVT or PE. He states that he was working and he felt like he was going to so he laid on his equipment and then drove here from [place]. He states that he has not missed his dialysis. He denies any pain at all whatsoever. He denies any history of COPD or asthma. REVIEW OF SYSTEMS: Constitutional: Denies fever, chills. Eyes: Denies eye pain Ears, Nose, Mouth, & Throat: Denies earache Cardiovascular: Denies chest pain Respiratory: Positive for exertional dyspnea. Gastrointestinal: Denies Nausea, vomiting, diarrhea, hematochezia. Genitourinary: Denies hematuria Skin:Denies a rash MSK: Denies joint pain Neurological: Denies blurred vision Psychiatric: Denies depression PAST MEDICAL HISTORY: As per history of present illness and as reviewed below otherwise noncontributory. SURGICAL HISTORY: As per history of present illness and as reviewed below otherwise noncontributory. SOCIAL HISTORY: As per history of present illness and as reviewed below otherwise noncontributory. FAMILY HISTORY: As per history of present illness and as reviewed below otherwise noncontributory. EXAMINATION OF ORGAN SYSTEMS/BODY AREAS: Constitutional: Blood pressure is 132/90, heart rate 94, respiratory rate 16 with an oxygen saturation 97% on room air. Temperature 36.8 General: Middle-aged gentleman who appears dyspneic and pale Psychiatric: Appropriate mood and affect. Eyes: No scleral icterus or conjunctival erythema ENMT: Moist mucous membranes. No pharyngeal erythema no stridor, no drooling, no trismus Cardiovascular: Regular, rate, and rhythm. No gallops, murmurs, or rubs. Bilateral upper extremity pulses symmetric and intact. No peripheral edema. No JVD. Respiratory: Lungs clear to auscultation bilaterally. No wheezes, rales, or rhonchi. Patient speaking in 1-2 word sentences. Severe exertional dyspnea with walking from waiting room to patient room. Gastrointestinal: Soft, nontender, obese abdomen with a periumbilical hernia which is easily reducible. Normoactive bowel sounds Genitourinary: No suprapubic tenderness Musculoskeletal: Normal range of motion. Skin: No lesions or abrasions. Neurological: Alert, GCS 15 MEDICAL DECISION MAKING AND COURSE IN THE ED WITH INTERPRETATION/REVIEW OF DIAGNOSTIC STUDIES: This is a 60-year-old man with a past medical history of end-stage renal disease on hemodialysis on Wednesday and Wednesday, congestive heart failure, hyperlipidemia who comes to the emergency department with severe dyspnea on exertion with 5 days of nonproductive cough who is saturating appropriately but is only speaking in 1-2 word sentences who appears dyspneic. Cardiac monitoring at this time did reveal sinus rhythm and pulse oximetry with good waveform was 97% on room air. On repeat auscultation the patient did have some minor expiratory wheezing. The patient does not have a history of COPD or asthma however we will treat with albuterol and ipratropium and reevaluate. We did obtain an EKG which did not reveal any acute signs of ischemia he did have some QRS widening without any peaked T waves. At this time main concern is that he is fluid overload given that he is an end-stage renal patient therefore will obtain a chest x-ray. This will also help us evaluate if there is a pneumonia, pneumothorax. The patient is vaccinated however we will obtain a Covid swab. Will obtain a cardiac work-up including CBC, BMP, troponin, magnesium. Patient is low risk for PE-no further work-up will be initiated. Wells Criteria Clinical signs/symptoms of DVT: No (0) PE #1 Dx or equally likely: No (0) Heart Rate >100: No (0) Immobilization for 3 days or surgery in last month: No (0) Previously Dx PE or DVT: No (0) Hemoptysis: No (0) Malignancy w/ Tx within 6 months or palliative: No (0) Wells Score: 0 Laboratory: CBC reveals a microcytic anemia with an MCV of 103.5 and hemoglobin of 12.2 hematocrit of 38. INR is normal. BMP reveals hyperkalemia at 7.1 without any hemolysis and elevated BUN at 68 and a creatinine of 8.4. Hyperglycemia at 133 and hypermagnesemia at 2.6. Troponin is negative at 0.056. Covid is negative. The radiological images were viewed by myself along with reading the report from the radiologist. Chest x-ray does not reveal any acute pathology. After initial DuoNeb treatment the patient continued to be about the same however he appeared more comfortable. Given his hyperkalemia I did repeat the EKG and he does have some QRS widening without any evidence of peaked T waves. We will treat him with albuterol 10 mg, 10 units of IV insulin, 1 g of calcium gluconate and Kayexalate. I did discuss with the patient at this time that given he is a hemodialysis patient and that we do not have hemodialysis emergently in the emergency department or in our hospital that we would have to transfer him for emergent hemodialysis given the hyperkalemia given that this is life-threatening. At this time the patient stated "why cannot I get it here." I stated that they do not do emergent hemodialysis and given the dyspnea and is now requiring of supplemental oxygenation that he does need admission and emergent hemodialysis as sometimes chest x-rays do not reveal pulmonary edema. At this time we do not have a certain etiology for his dyspnea or hypoxia. He stated that he would like to think about it. Patient elected for transfer and need for emergent hemodialysis. I contacted [facility] in [place] and even though they do not have any available ICU, medical beds I did speak with felter [employer] Dr. Escobar who did recommend hemodialysis but recommended outpatient hemodialysis here in [place]. I did discuss with him at this time that our outpatient hemodialysis center will not dialyze this patient given his supplemental oxygen need and his hyperkalemia. At this time [facility] does not have any capability. Therefore I contacted [facility] in [place], [facility] in [place], and [facility] in [place] all of which do not have capability to perform emergent hemodialysis or admission. They are only excepting STEMI, stroke, trau ma. Therefore I contacted [facility] and spoke with Dr. Monk and Dr. Sage who stated that they currently do not have any inpatient beds however they would accept the patient for hemodialysis and transfer. I did discuss with the patient he was amenable to this plan. DISPOSITION: The patient was transferred to [facility] in stable yet serious condition CONDITION: Serious PROCEDURES: Cardiac monitoring interpretation, pulse oximetry interpretation FINAL IMPRESSION(S)/DIAGNOSES: 1. Acute hypoxic respiratory failure requiring supplemental oxygenation likely secondary to mild fluid overload 2. Acute hyperkalemia likely secondary to end-stage renal disease 3. Acute QRS widening likely secondary to #2 Critical Care Procedure Note Authorized and performed by: Jack Sorto M.D. Critical Care Time: 65 minutes Due to a high probability of clinically significant, life threatening deterioration, the patient required my highest level of preparedness to intervene emergently and I personally spent this critical care time directly and personally managing the patient. This critical care time included obtaining a history, examining the patient, pulse oximetry; ordering and review of studies; arranging urgent treatment with development of a management plan; evaluation of a patients reponse to treatment; frequent assessment; and discussions with other providers. This critical care time was performed to assess and manage the high probability of imminent, life threatening deterioration that could result in multiorgan failure. It was exclusive of separate billable procedures and treating other patients. Please see MDM section and rest of the note for further information on patient assessment and treatment. Please see MDM section and rest of the note for further information on patient assessment and treatment. Jack Sorto M.D. - Related Data Allergies Allergy/AdvReac Type Severity Reaction Status Date / Time No Known Allergies Allergy Verified 12/09/20 11:34 Home Meds: Home Meds Allopurinol [Zyloprim] 100 mg PO DAILY PRN 10/22/15 [History] Simvastatin [Zocor] 10 mg PO BEDTIME 10/22/15 [History] Furosemide [Lasix] 40 mg PO DAILY 02/02/16 [History] carvediloL [Coreg] 25 mg PO BID 02/02/16 [History] buPROPion [buPROPion XL] 150 mg PO DAILY 04/11/19 [History] hydrALAZINE [Apresoline] 50 mg PO BID 04/11/19 [History] Past Medical History HEENT History: Reports: None Cardiovascular History: Reports: Congenital Septal Defect, Heart Failure, High Cholesterol, Hypertension, Stents, Other (See Below) Other Cardiovascular History: Left ventricle weakness, Genitourinary History: Reports: Renal Disease Other Genitourinary History: bergers disease 1997 Musculoskeletal History: Reports: Gout Psychiatric History: Reports: Anxiety, Depression Other Psychiatric History: on medications but unable to recall Hematologic History: Reports: None Immunologic History: Reports: None - Infectious Disease History Infectious Disease History: Reports: None - Past Surgical History Head Surgeries/Procedures: Reports: None Cardiovascular Surgical History: Reports: Other (See Below) Other Cardiovascular Surgeries/Procedures: Defibrillator Social & Family History - Family History Family Medical History: No Pertinent Family History - Tobacco Use Tobacco Use Status *Q: Never Tobacco User - Caffeine Use Caffeine Use: Reports: None - Recreational Drug Use Recreational Drug Use: No ED ROS GENERAL - Review of Systems Review Of Systems: See Below ED EXAM, GENERAL - Physical Exam Exam: See Below Course - Vital Signs Last Recorded V/S: Last Vital Signs Temp 36.8 C 12/09/20 11:20 Pulse 70 12/09/20 14:39 Resp 16 12/09/20 14:39 BP 124/90 12/09/20 14:39 Pulse Ox 94 L 12/09/20 14:39 - Orders/Labs/Meds Labs: Laboratory Tests 12/09/20 12/09/20 12/09/20 Range/Units 11:46 11:46 11:46 WBC 7.61 (4.0-11.0) K/uL RBC 3.67 L (4.50-5.90) M/uL Hgb 12.2 L (13.0-17.0) g/dL Hct 38.0 (38.0-50.0) % MCV 103.5 H (80.0-98.0) fL MCH 33.2 H (27.0-32.0) pg MCHC 32.1 (31.0-37.0) g/dL RDW Std Deviation 50.7 (28.0-62.0) fl RDW Coeff of Marcus 14 (11.0-15.0) % Plt Count 181 (150-400) K/uL MPV 10.60 (7.40-12.00) fL Neut % (Auto) 76.8 (48.0-80.0) % Lymph % (Auto) 17.7 (16.0-40.0) % Dickens % (Auto) 4.3 (0.0-15.0) % Eos % (Auto) 1.1 (0.0-7.0) % Baso % (Auto) 0.1 (0.0-1.5) % Neut # (Auto) 5.8 H (1.4-5.7) K/uL Lymph # (Auto) 1.4 (0.6-2.4) K/uL Dickens # (Auto) 0.3 (0.0-0.8) K/uL Eos # (Auto) 0.1 (0.0-0.7) K/uL Baso # (Auto) 0.0 (0.0-0.1) K/uL Nucleated RBC % 0.0 /100WBC Nucleated RBCs # 0 K/uL INR 1.01 Sodium 136 (136-148) mmol/L Potassium 7.1 H* (3.5-5.1) mmol/L Chloride 102 (98-107) mmol/L Carbon Dioxide 24.8 (21.0-32.0) mmol/L BUN 68 H (7.0-18.0) mg/dL Creatinine 8.4 H (0.8-1.3) mg/dL Est Cr Clr Drug Dosing 9.90 mL/min Estimated GFR (MDRD) 6.6 ml/min Glucose 133 H (74-106) mg/dL Calcium 8.4 L (8.5-10.1) mg/dL Magnesium 2.6 H (1.8-2.4) mg/dL Troponin I 0.056 (0.000-0.056) ng/mL SARS-CoV-2 RNA (DAVONTE) (NEGATIVE) 12/09/20 Range/Units 12:07 WBC (4.0-11.0) K/uL RBC (4.50-5.90) M/uL Hgb (13.0-17.0) g/dL Hct (38.0-50.0) % MCV (80.0-98.0) fL MCH (27.0-32.0) pg MCHC (31.0-37.0) g/dL RDW Std Deviation (28.0-62.0) fl RDW Coeff of Marcus (11.0-15.0) % Plt Count (150-400) K/uL MPV (7.40-12.00) fL Neut % (Auto) (48.0-80.0) % Lymph % (Auto) (16.0-40.0) % Dickens % (Auto) (0.0-15.0) % Eos % (Auto) (0.0-7.0) % Baso % (Auto) (0.0-1.5) % Neut # (Auto) (1.4-5.7) K/uL Lymph # (Auto) (0.6-2.4) K/uL Dickens # (Auto) (0.0-0.8) K/uL Eos # (Auto) (0.0-0.7) K/uL Baso # (Auto) (0.0-0.1) K/uL Nucleated RBC % /100WBC Nucleated RBCs # K/uL INR Sodium (136-148) mmol/L Potassium (3.5-5.1) mmol/L Chloride (98-107) mmol/L Carbon Dioxide (21.0-32.0) mmol/L BUN (7.0-18.0) mg/dL Creatinine (0.8-1.3) mg/dL Est Cr Clr Drug Dosing mL/min Estimated GFR (MDRD) ml/min Glucose (74-106) mg/dL Calcium (8.5-10.1) mg/dL Magnesium (1.8-2.4) mg/dL Troponin I (0.000-0.056) ng/mL SARS-CoV-2 RNA (DAVONTE) NEGATIVE (NEGATIVE) Meds: Medications Discontinued Medications Generic Name Dose Route Start Last Admin Trade Name Freq PRN Reason Stop Dose Admin Albuterol 5 mg 12/09/20 11:55 12/09/20 13:16 Albuterol 0.083% 2.5 Mg/3 Ml Neb Soln [facility] 12/09/20 11:56 Not Given ONETIME STA Albuterol 10 mg 12/09/20 12:36 12/09/20 13:16 Albuterol 0.5% 5 Mg/Ml Neb Soln 20 Ml Bottle NEB 12/09/20 12:37 10 mg ONETIME ONE Administration Albuterol 10 mg 12/09/20 13:15 12/09/20 13:17 Albuterol 0.5% 5 Mg/Ml Neb Soln 20 Ml Bottle NEB 12/09/20 13:16 Not Given ONETIME ONE Albuterol/Ipratropium Confirm 12/09/20 11:25 12/09/20 11:30 Albuterol/Ipratropium 3.0-0.5 Mg/3 Ml Neb Soln Administered 12/09/20 11:26 Not Given Dose 3 ml .ROUTE .STK-MED ONE Albuterol/Ipratropium 3 ml 12/09/20 11:29 12/09/20 11:33 Albuterol/Ipratropium 3.0-0.5 Mg/3 Ml Neb Soln NEB 12/09/20 11:30 3 ml ONETIME ONE Administration Calcium Gluconate 1 gm 12/09/20 12:36 12/09/20 12:55 Calcium Gluconate 10% 1 Gm/10 Ml Sdv IVPUSH 12/09/20 12:37 1 gm ONETIME ONE Administration Dextrose/Water 50 ml 12/09/20 12:36 50% Dextrose In Water 50 Ml Syringe IV ASDIRECTED PRN Hypoglycemia Dextrose/Water 50 ml 12/09/20 12:36 50% Dextrose In Water 50 Ml Syringe IVPUSH ASDIRECTED PRN Hypoglycemia Glucagon 1 mg 12/09/20 12:36 Glucagon,Human Recombinant 1 Mg Vial IM ASDIRECTED PRN Hypoglycemia Insulin Human Regular 10 unit 12/09/20 12:36 12/09/20 13:18 Insulin Regular, Human 100 Units/Ml 10 Ml Vial IVPUSH 12/09/20 12:37 10 unit ONETIME ONE Administration Protocol Departure - Departure Time of Disposition: 14:40 Disposition: DC/Tfer to Acute Hospital 02 Condition: Serious Clinical Impression: Hyperkalemia, Hypoxia - Discharge Information Referrals: PCP,None [Primary Care Provider] - Forms: ED Department Discharge Sepsis Event Note (ED) - Evaluation Sepsis Screening Result: Possible Sepsis Risk - Focused Exam Vital Signs: Vital Signs Temp Pulse Resp BP Pulse Ox Pulse Ox 12/09/20 14:39 70 16 124/90 94 L 12/09/20 13:25 89 16 120/85 95 12/09/20 13:19 93 L 12/09/20 12:52 91 16 112/79 94 L 12/09/20 11:20 36.8 C 94 16 132/90 97
[2020-12-09 12:33] LABS: CARBON DIOXIDE,CO2 24.8 mmol/L (21.0-32.0)
[2020-12-09 12:34] LABS: POTASSIUM,K 7.1 mmol/L (3.5-5.1)
[2020-12-09] MEDS ORDERED: Calcium Gluconate 10% 1 GM/10 ML SDV IVPUSH ONE (12:36)
[2020-12-09] MEDS ORDERED: Albuterol 0.5% 5 MG/ML Neb Soln 20 ML Bottle NEB ONE ×2 (12:36→13:15)
[2020-12-09] MEDS ORDERED: Insulin Regular, Human 100 Units/ML 10 ML Vial IVPUSH ONE (12:36)
[2020-12-09] MEDS ORDERED: Glucagon,Human Recombinant 1 MG Vial IM PRN (12:36)
[2020-12-09] MEDS ORDERED: 50% Dextrose in Water 50 ML Syringe IV PRN (12:36)
[2020-12-09] MEDS ORDERED: 50% Dextrose in Water 50 ML Syringe IVPUSH PRN (12:36)
[2020-12-09 14:40] VITALS: BP 124/90; PULSE 70
--- NOTE | 2020-12-09 17:28 | PCM.EKG ---
#2 Interpretation EKG Date: 12/09/20 Time: 13:07 Rhythm: NSR Rate (Beats/Min): 91 [place]: Normal P-Wave: Present QRS: Wide ST-T: Normal QT: Normal Comparison: No Change (TOday) EKG Interpretation Comments: Sinus Rhythm with QRS widening
== END 2020-12-09 14:40 ==
LOC: MW.ED 11:19
DX: J96.01 Acute respiratory failure with hypoxia (principal); E87.5 Hyperkalemia; I11.0 Hypertensive heart disease with heart failure; I50.9 Heart failure, unspecified; E78.00 Pure hypercholesterolemia, unspecified; M10.9 Gout, unspecified; Z79.899 Other long term (current) drug therapy; Z20.822 Contact with and (suspected) exposure to COVID-19
CPT/HCPCS: 36415; 71045; 80048; 83735; 84484; 85025; 85610; 93005; 94640; 96374; 99291; J0610; U0002; J1815-GY; J7620-GY

== ENCOUNTER 2021-02-17 16:03 | Emergency (ER) | payer MEDICARE, BC ==
--- NOTE | 2021-02-17 16:56 | CR ---
Indication: Cough, body chills, cramps, nausea Technique: Chest 1 view Comparison: December 09, 2020 Findings/Impression: Stable cardiomegaly. Electrical device in the soft tissues of the left lower lateral chest wall with a lead tip terminating at the level of the aortic arch. Normal pulmonary vasculature. No focal infiltrate, effusion, or pneumothorax. No acute osseous abnormality. Dictated by Shawna Izquierdo MD @ 02/17/2021 4:54:26 PM (Electronically Signed)
[2021-02-17 17:11] VITALS: BP 93/50; PULSE 112
--- NOTE | 2021-02-17 17:12 | EDM.PDOC ---
ED HPI GENERAL MEDICAL PROBLEM - General Chief Complaint: Abdominal Pain Stated Complaint: FEVER,COUGH,CHILLS Time Seen by Provider: 02/17/21 17:11 Source of Information: Reports: Patient History Limitations: Reports: No Limitations - History of Present Illness INITIAL COMMENTS - FREE TEXT/NARRATIVE: HISTORY AND PHYSICAL: History of present illness: Patient is a 61-year-old male who presents to the emergency room with complaints of low abdominal pain, chills, cough, fatigue and generally feeling unwell over the past 5 days. Has not had any nausea, vomiting, change in stools associated with the low abdominal pain. His abdomen is nontender. Patient does have chronic kidney disease, receives dialysis with his last dialysis was this morning. Patient denies any fever, headache, change in vision, syncope or near syncope. Denies any chest pain, back pain, shortness of breath. Has not noted any blood in urine or stool. Patient has been eating and drinking appropriately. No recent travel or sick contacts. Review of systems: As per history of present illness and below otherwise all systems reviewed and negative. Past medical history: As per history of present illness and as reviewed below otherwise noncontributory. Surgical history: As per history of present illness and as reviewed below otherwise noncontributory. Social history: See social history for further information Family history: As per history of present illness and as reviewed below otherwise noncontributory. Physical exam: General: Well developed and well nourished. Alert and orientated x 3. Nontoxic in appearance and in no acute distress. Vital signs are stable and have been reviewed by me. Nursing notes were reviewed. HEENT: Atraumatic, normocephalic, pupils equal and reactive bilaterally, negative for conjunctival pallor or scleral icterus, mucous membranes moist, TMs normal bilaterally, throat clear, neck supple, nontender, trachea midline. No drooling or trismus noted. No meningeal signs. No hot potato voice noted. Lungs: Clear to auscultation bilaterally. No wheezes, rales, or rhonchi. Chest nontender. Normal work of breathing, no accessory muscles used. Heart: S1S2, regular rate and rhythm without overt murmur, gallops, or rubs. No JVD. No peripheral edema Abdomen: Soft, nondistended, nontender. Normoactive bowel sounds. Negative for masses or costovertebral tenderness. Skin: Intact, warm, dry. No lesions or rashes noted. Hematologic: No petechiae or purpra. Mucosa appropriate color and normal nail bed color and refill. Extremities: Atraumatic, moves all extremities per self without difficulty or deficits, negative for cords or calf pain. Neurovascular unremarkable. Neuro: Awake, alert, oriented. Cranial nerves II through XII unremarkable. Cerebellum unremarkable. Motor and sensory unremarkable throughout. Exam nonfocal. Psychiatric: Mood and affect are appropriate. Normal thought process. Answering questions appropriately. Please note that the patient was seen and evaluated during the 2019 SARS-CoV-2 novel coronavirus pandemic period. Community viral transmission is ongoing at time of this encounter and the emergency department is operating under pandemic response procedures. Medical Decision Making: Chest x-ray shows stable cardiomegaly. Electrical device in the soft tissues of the left lower lateral chest wall with a lead tip terminating at the level of the aortic arch. Normal pulmonary vasculature. No focal infiltrate, effusion, or pneumothorax. No acute osseous abnormality. Typically BUN and creatinine run 60s to 90s/11.4-8.4. Today his BUN is 26 and creatinine is 5.6. Mild derangements noted, but nothing concerning for today's visit. VSS with oxygen saturation of 93-94% on RA. Due to his multiple health comorbidities I will order out patient antibodies. I have talked with the patient about today's findings, in addition to providing specific details for plan of care. Reassessment at the time of disposition demonstrates that the patient is in no acute distress. The patient is stable for discharge, counseling was provided and we discussed in great detail signs and symptoms that would prompt them to return to the Emergency Department. Medication, follow up and supportive care measures were reviewed and discussed. Voices understanding and is agreeable to plan of care. Denies any further questions or concerns at this time. Diagnostics: CBC, CMP, COVID, CXR, Therapeutics: IV fluids Prescription: Outpatient antibody therapy Impression: COVID-19 Definitive disposition and diagnosis as appropriate pending reevaluation and review of above. Abdominal Pain Score (Numeric/FACES): 5 - Related Data Allergies Allergy/AdvReac Type Severity Reaction Status Date / Time No Known Allergies Allergy Verified 02/17/21 17:11 Home Meds: Home Meds Allopurinol [Zyloprim] 100 mg PO DAILY PRN 10/22/15 [History] Simvastatin [Zocor] 10 mg PO BEDTIME 10/22/15 [History] Furosemide [Lasix] 40 mg PO DAILY 02/02/16 [History] carvediloL [Coreg] 25 mg PO BID 02/02/16 [History] buPROPion [buPROPion XL] 150 mg PO DAILY 04/11/19 [History] hydrALAZINE [Apresoline] 50 mg PO BID 04/11/19 [History] Past Medical History HEENT History: Reports: None Cardiovascular History: Reports: Congenital Septal Defect, Heart Failure, High Cholesterol, Hypertension, Stents, Other (See Below) Other Cardiovascular History: Left ventricle weakness, Genitourinary History: Reports: Renal Disease Other Genitourinary History: bergers disease 1997 Musculoskeletal History: Reports: Gout Psychiatric History: Reports: Anxiety, Depression Other Psychiatric History: on medications but unable to recall Hematologic History: Reports: None Immunologic History: Reports: None - Infectious Disease History Infectious Disease History: Reports: None - Past Surgical History Head Surgeries/Procedures: Reports: None Cardiovascular Surgical History: Reports: Other (See Below) Other Cardiovascular Surgeries/Procedures: Defibrillator Social & Family History - Family History Family Medical History: No Pertinent Family History - Caffeine Use Caffeine Use: Reports: None ED ROS GENERAL - Review of Systems Review Of Systems: Comprehensive ROS is negative, except as noted in HPI. ED EXAM, GI/ABD - Physical Exam Exam: See Below (See dictation) Course - Vital Signs Last Recorded V/S: Last Vital Signs Temp 98.4 F 02/17/21 17:08 Pulse 112 H 02/17/21 17:08 Resp 20 02/17/21 17:08 BP 93/50 L 02/17/21 17:08 Pulse Ox 92 L 02/17/21 17:08 - Orders/Labs/Meds Orders: Active Orders 24 hr Category Date Time Status Isolation [COMM] Routine Oth 02/17/21 16:07 Active Labs: Laboratory Tests 02/17/21 02/17/21 02/17/21 Range/Units 17:40 17:40 18:22 WBC 4.26 (4.0-11.0) K/uL RBC 3.82 L (4.50-5.90) M/uL Hgb 12.9 L (13.0-17.0) g/dL Hct 38.4 (38.0-50.0) % MCV 100.5 H (80.0-98.0) fL MCH 33.8 H (27.0-32.0) pg MCHC 33.6 (31.0-37.0) g/dL RDW Std Deviation 50.4 (28.0-62.0) fl RDW Coeff of Marcus 14 (11.0-15.0) % Plt Count 143 L (150-400) K/uL MPV 10.40 (7.40-12.00) fL Neut % (Auto) 68.1 (48.0-80.0) % Lymph % (Auto) 19.5 (16.0-40.0) % Coles % (Auto) 10.8 (0.0-15.0) % Eos % (Auto) 1.4 (0.0-7.0) % Baso % (Auto) 0.2 (0.0-1.5) % Neut # (Auto) 2.9 (1.4-5.7) K/uL Lymph # (Auto) 0.8 (0.6-2.4) K/uL Coles # (Auto) 0.5 (0.0-0.8) K/uL Eos # (Auto) 0.1 (0.0-0.7) K/uL Baso # (Auto) 0.0 (0.0-0.1) K/uL Nucleated RBC % 0.0 /100WBC Nucleated RBCs # 0 K/uL Sodium 138 (136-148) mmol/L Potassium 4.3 (3.5-5.1) mmol/L Chloride 100 (98-107) mmol/L Carbon Dioxide 29.4 (21.0-32.0) mmol/L BUN 26 H (7.0-18.0) mg/dL Creatinine 5.6 H (0.8-1.3) mg/dL Est Cr Clr Drug Dosing 14.67 mL/min Estimated GFR (MDRD) 10.5 ml/min Glucose 98 (74-106) mg/dL Calcium 8.6 (8.5-10.1) mg/dL Total Bilirubin 0.3 (0.2-1.0) mg/dL AST 10 L (15-37) IU/L ALT 18 (14-63) IU/L Alkaline Phosphatase 55 (46-116) U/L Total Protein 7.4 (6.4-8.2) g/dL Albumin 3.2 L (3.4-5.0) g/dL Globulin 4.2 H (2.6-4.0) g/dL Albumin/Globulin Ratio 0.8 L (0.9-1.6) SARS-CoV-2 RNA (DAVONTE) POSITIVE H (NEGATIVE) Meds: Medications Discontinued Medications Generic Name Dose Route Start Last Admin Trade Name Neema PRN Reason Stop Dose Admin Sodium Chloride 1,000 mls @ 999 mls/hr 02/17/21 17:15 02/17/21 18:21 Normal Saline IV 02/17/21 18:15 999 mls/hr STAT ONE Administration Departure - Departure Time of Disposition: 19:40 Disposition: Home, Self-Care 01 Clinical Impression: COVID-19 - Discharge Information Instructions: 10 Things You Can Do to Manage Your COVID-19 Symptoms at Home - [facility] (11/08/2020) Referrals: Kishore Garcia MD [Primary Care Provider] - Forms: ED Department Discharge Additional Instructions: The following information is given to patients seen in the emergency department who are being discharged to home. This information is to outline your options for follow-up care. We provide all patients seen in our emergency department with a follow-up referral. The need for follow-up, as well as the timing and circumstances, are variable depending upon the specifics of your emergency department visit. If you don't have a primary care physician on staff, we will provide you with a referral. We always advise you to contact your personal physician following an emergency department visit to inform them of the circumstance of the visit and for follow-up with them and/or the need for any referrals to a consulting spe cialist. The emergency department will also refer you to a specialist when appropriate. This referral assures that you have the opportunity for follow-up care with a specialist. All of these measure are taken in an effort to provide you with optimal care, which includes your follow-up. Under all circumstances we always encourage you to contact your private physician who remains a resource for coordinating your care. When calling for follow-up care, please make the office aware that this follow-up is from your recent emergency room visit. If for any reason you are refused follow-up, please contact the [facility] Emergency Department at and asked to speak to the emergency department charge nurse. [facility] [address] [place] [address] [facility] [address] [place] [phone] Thank you for choosing the [facility] emergency department in [place] for your medical needs today. It was a pleasure caring for you. Today you were seen in the emergency department for COVID 19 1. Your COVID-19 screening is positive. That means you do have the coronavirus and you are considered contagious. Your vital signs and oxygen saturation are well enough that you were able to monitor your symptoms at home. The hospital will call you to schedule antibody therapy should you want this treatment. Continue to monitor for trouble breathing, new confusion or inability to arouse, bluish lips or face or any of the other symptoms we discussed -if this occurs please return to the emergency room immediately. 2. Please self quarantine until cleared by [facility] Department. Inform any persons that you have been in contact with since you started becoming symptomatic that you have tested positive; they should be made aware and take the appropriate steps as needed. 3. You can take NyQuil during the evening to help get a restful night sleep. May alternate Tylenol and ibuprofen as needed for pain and fever management. 4. The [facility] department will be calling you and following up with you. The [place] COVID 19 Hotline phone number , They are open Wednesday - Wednesday 7am - 7pm. Follow up with your primary care provider for re-evaluation as directed. Sepsis Event Note (ED) - Evaluation Sepsis Screening Result: No Definite Risk - Focused Exam Vital Signs: Vital Signs Temp Pulse Resp BP Pulse Ox 02/17/21 17:08 98.4 F 112 H 20 93/50 L 92 L - My Orders Last 24 Hours: My Active Orders 02/17/21 16:07 Isolation [COMM] Routine - Assessment/Plan Last 24 Hours: My Active Orders 02/17/21 16:07 Isolation [COMM] Routine
[2021-02-17] MEDS ORDERED: Sodium Chloride 0.9% 1,000 ML IV ONE (17:15)
[2021-02-17 18:26] LABS: CARBON DIOXIDE,CO2 29.4 mmol/L (21.0-32.0); POTASSIUM,K 4.3 mmol/L (3.5-5.1)
--- NOTE | 2021-02-17 19:19 | PCM.EKG ---
#1 Interpretation EKG Interpretation Comments: EKG dated 02/17/2021 at 5:31 PM shows sinus tachycardia heart rate 100 NH 159 axis 50 late transition R wave compared 12/09/2020 no change impression no acute and
== END 2021-02-17 19:50 | disposition home or self-care (01) ==
LOC: MW.ED 16:03
DX: U07.1 COVID-19 (principal); E78.00 Pure hypercholesterolemia, unspecified; I11.0 Hypertensive heart disease with heart failure; I50.9 Heart failure, unspecified; M10.9 Gout, unspecified; Z95.5 Presence of coronary angioplasty implant and graft; Z79.899 Other long term (current) drug therapy
CPT/HCPCS: 36415; 71045; 80053; 85025; 87804; 93005; 99284; J7030; U0002

== ENCOUNTER 2021-03-03 07:27 | Observation (INO) | payer MEDICARE, BC ==
--- NOTE | 2021-03-03 07:48 | EDM.PDOC ---
ED HPI GENERAL MEDICAL PROBLEM - General Stated Complaint: SHORTNESS OF BREATH Time Seen by Provider: 03/03/21 07:29 Source of Information: Reports: Patient - History of Present Illness INITIAL COMMENTS - FREE TEXT/NARRATIVE: 61-year-old male history of end-stage renal disease, Covid diagnosed on 10 February, cardiomyopathy presents to the emergency department complaining of chest pain. It is at the bilateral lower rib area. It is worse when he takes a deep breath in and lays flat. He describes it as a muscle ache. Patient has had recent Covid and has had some lingering cough but no fevers or productive sputum. Patient denies any leg swelling. No history of blood clots. No recent travel or injury or cancer or surgeries. Moderate symptoms. Patient last dialyzed on Wednesday with a normal dialysis upper abdomen Pain Score (Numeric/FACES): 4 - Related Data Allergies Allergy/AdvReac Type Severity Reaction Status Date / Time No Known Allergies Allergy Verified 03/03/21 07:55 Home Meds: Home Meds Simvastatin [Zocor] 10 mg PO BEDTIME 10/22/15 [History] carvediloL [Coreg] 25 mg PO BID 02/02/16 [History] buPROPion [buPROPion XL] 150 mg PO DAILY 04/11/19 [History] Past Medical History HEENT History: Reports: None Cardiovascular History: Reports: Congenital Septal Defect, Heart Failure, High Cholesterol, Hypertension, Stents, Other (See Below) Other Cardiovascular History: Left ventricle weakness, Genitourinary History: Reports: Renal Disease Other Genitourinary History: bergers disease 1997 Musculoskeletal History: Reports: Gout Psychiatric History: Reports: Anxiety, Depression Other Psychiatric History: on medications but unable to recall Hematologic History: Reports: None Immunologic History: Reports: None - Infectious Disease History Infectious Disease History: Reports: None - Past Surgical History Head Surgeries/Procedures: Reports: None Cardiovascular Surgical History: Reports: Other (See Below) Other Cardiovascular Surgeries/Procedures: Defibrillator Social & Family History - Family History Family Medical History: No Pertinent Family History - Caffeine Use Caffeine Use: Reports: None ED ROS GENERAL - Review of Systems Review Of Systems: Comprehensive ROS is negative, except as noted in HPI. ED EXAM, GENERAL - Physical Exam Exam: See Below Free Text/Narrative:: CONSTITUTIONAL: well appearing in no acute distress SKIN: Warm, dry, and intact without rash HENT: Normocephalic, atraumatic, PULMONARY: clear to ausculation bilaterally. No rales, rhonchi, wheezing CARDIOVASCULAR: regular rate, No murmur, rubs, or gallops GASTROINTESTINAL: soft, nondistended, nontender NEUROLOGIC: normal speech, sensorimotor function grossly intact MUSCULOSKELETAL: no gross deformities, atraumatic PSYCHIATRIC: normal mood and affect #1 Interpretation EKG Interpretation Comments: EKG: NSR, nonspecific ST/T changes, Rate -98 Course - Vital Signs Text/Narrative:: Differential diagnosis: ACS, PE, pneumonia, pneumothorax, aortic dissection, other Patient presents to the emergency department as outlined above. Patient has evidence of probable PE which fits with the patient's pleuritic chest pain in the setting of Covid with possible hypercoagulable effect. On the CT scan there is some question of infiltrate so antibiotics were given. The patient is an end-stage renal dialysis patient. He was started on heparin. Patient at this time does not warrant any emergent dialysis. Patient is not particularly hypoxic but I am concerned because he is positive for Covid (diagnosed mid - late March) and end-stage renal disease patient and he is not the healthiest. Otherwise he could be considered for immediate outpatient management. We are somewhat limited secondary to end-stage renal disease in regard to his anticoagulation but I spoke to nephrology at [facility] ([place]) who recommends the patient can be transitioned to apixaban. Patient will be observed over the next day to ensure that there is no significant worsening hypoxia or dysrhythmia or hemodynamic instability. The patient is anticipated then to be able to be able to go home after period of observation on apixaban with outpatient dialysis Last Recorded V/S: Last Vital Signs Temp 36.6 C 03/03/21 07:30 Pulse 86 03/03/21 13:00 Resp 17 03/03/21 13:00 BP 92/62 03/03/21 13:00 Pulse Ox 94 L 03/03/21 13:00 - Orders/Labs/Meds Orders: Active Orders 24 hr Category Date Time Status Azithromycin [Zithromax] 500 mg Med 03/03/21 10:30 Active Sodium Chloride 0.9% [Normal Saline AdvBag] 250 ml IV ONETIME Heparin Sodium/0.45% NaCl [Heparin 25,000 Units in 1/2 Med 03/03/21 11:30 Active NS 500 ML] 500 ml IV TITRATE Medication Orders Azithromycin 500 mg/ Sodium (Chloride) 250 mls @ 250 mls/hr IV ONETIME JIMENA Last Admin: 03/03/21 11:56 Dose: 250 mls/hr Documented by: JOSE MANUEL Heparin Sodium/Sodium Chloride (Heparin 25,000 Units In 1/2 Ns 500 Ml) 500 mls @ 27.216 mls/hr IV TITRATE JIMENA; Protocol Last Admin: 03/03/21 11:57 Dose: 12 units/kg/hr, 27.216 mls/hr Documented by: JOSE MANUEL Cosigned by: NICHOLAS Labs: Laboratory Tests 03/03/21 03/03/21 03/03/21 Range/Units 07:40 07:40 07:40 WBC 7.92 (4.0-11.0) K/uL RBC 3.12 L (4.50-5.90) M/uL Hgb 10.2 L (13.0-17.0) g/dL Hct 31.9 L (38.0-50.0) % MCV 102.2 H (80.0-98.0) fL MCH 32.7 H (27.0-32.0) pg MCHC 32.0 (31.0-37.0) g/dL RDW Std Deviation 50.5 (28.0-62.0) fl RDW Coeff of Marcsu 14 (11.0-15.0) % Plt Count 286 (150-400) K/uL MPV 9.70 (7.40-12.00) fL Neut % (Auto) 79.6 (48.0-80.0) % Lymph % (Auto) 11.2 L (16.0-40.0) % [place] % (Auto) 8.3 (0.0-15.0) % Eos % (Auto) 0.8 (0.0-7.0) % Baso % (Auto) 0.1 (0.0-1.5) % Neut # (Auto) 6.3 H (1.4-5.7) K/uL Lymph # (Auto) 0.9 (0.6-2.4) K/uL [place] # (Auto) 0.7 (0.0-0.8) K/uL Eos # (Auto) 0.1 (0.0-0.7) K/uL Baso # (Auto) 0.0 (0.0-0.1) K/uL Nucleated RBC % 0.0 /100WBC Nucleated RBCs # 0 K/uL APTT 38.5 H (18.6-31.3) SEC D-Dimer, Quantitative 1.17 H (0.0-0.50) mg/L FEU Sodium 139 (136-148) mmol/L Potassium 4.6 (3.5-5.1) mmol/L Chloride 102 (98-107) mmol/L Carbon Dioxide 28.8 (21.0-32.0) mmol/L BUN 58 H (7.0-18.0) mg/dL Creatinine 9.2 H (0.8-1.3) mg/dL Est Cr Clr Drug Dosing 8.93 mL/min Estimated GFR (MDRD) 5.9 ml/min Glucose 92 (74-106) mg/dL Calcium 9.2 (8.5-10.1) mg/dL Total Bilirubin 0.4 (0.2-1.0) mg/dL AST 11 L (15-37) IU/L ALT 13 L (14-63) IU/L Alkaline Phosphatase 49 (46-116) U/L Troponin I < 0.050 (0.000-0.056) ng/mL B-Natriuretic Peptide (<100) PG/ML Total Protein 7.3 (6.4-8.2) g/dL Albumin 2.5 L (3.4-5.0) g/dL Globulin 4.8 H (2.6-4.0) g/dL Albumin/Globulin Ratio 0.5 L (0.9-1.6) Lipase 256 (73-393) U/L SARS-CoV-2 RNA (DAVONTE) (NEGATIVE) 03/03/21 03/03/21 Range/Units 07:40 08:00 WBC (4.0-11.0) K/uL RBC (4.50-5.90) M/uL Hgb (13.0-17.0) g/dL Hct (38.0-50.0) % MCV (80.0-98.0) fL MCH (27.0-32.0) pg MCHC (31.0-37.0) g/dL RDW Std Deviation (28.0-62.0) fl RDW Coeff of Marcus (11.0-15.0) % Plt Count (150-400) K/uL MPV (7.40-12.00) fL Neut % (Auto) (48.0-80.0) % Lymph % (Auto) (16.0-40.0) % [place] % (Auto) (0.0-15.0) % Eos % (Auto) (0.0-7.0) % Baso % (Auto) (0.0-1.5) % Neut # (Auto) (1.4-5.7) K/uL Lymph # (Auto) (0.6-2.4) K/uL [place] # (Auto) (0.0-0.8) K/uL Eos # (Auto) (0.0-0.7) K/uL Baso # (Auto) (0.0-0.1) K/uL Nucleated RBC % /100WBC Nucleated RBCs # K/uL APTT (18.6-31.3) SEC D-Dimer, Quantitative (0.0-0.50) mg/L FEU Sodium (136-148) mmol/L Potassium (3.5-5.1) mmol/L Chloride (98-107) mmol/L Carbon Dioxide (21.0-32.0) mmol/L BUN (7.0-18.0) mg/dL Creatinine (0.8-1.3) mg/dL Est Cr Clr Drug Dosing mL/min Estimated GFR (MDRD) ml/min Glucose (74-106) mg/dL Calcium (8.5-10.1) mg/dL Total Bilirubin (0.2-1.0) mg/dL AST (15-37) IU/L ALT (14-63) IU/L Alkaline Phosphatase (46-116) U/L Troponin I (0.000-0.056) ng/mL B-Natriuretic Peptide 654 H (<100) PG/ML Total Protein (6.4-8.2) g/dL Albumin (3.4-5.0) g/dL Globulin (2.6-4.0) g/dL Albumin/Globulin Ratio (0.9-1.6) Lipase (73-393) U/L SARS-CoV-2 RNA (DAVONTE) POSITIVE H (NEGATIVE) Meds: Medications Generic Name Dose Route Start Last Admin Trade Name Freq PRN Reason Stop Dose Admin Azithromycin 500 mg/ Sodium 250 mls @ 250 mls/hr 03/03/21 10:30 03/03/21 11:56 Chloride IV 250 mls/hr ONETIME JIMENA Administration Heparin Sodium/Sodium Chloride 500 mls @ 27.216 mls/hr 03/03/21 11:30 03/03/21 11:57 Heparin 25,000 Units In 1/2 Ns 500 Ml IV 12 units/kg/hr TITRATE JIMENA 27.216 mls/hr Administration Protocol 12 UNITS/KG/HR Discontinued Medications Generic Name Dose Route Start Last Admin Trade Name Freq PRN Reason Stop Dose Admin Enoxaparin Sodium 110 mg 03/03/21 10:24 03/03/21 11:00 Enoxaparin 150 Mg/1 Ml Syringe SUBCUT 03/03/21 10:25 Not Given ONETIME ONE Heparin Sodium (Porcine) 7,500 units 03/03/21 11:16 03/03/21 11:57 Heparin Sodium 5,000 Units/Ml Vial IVPUSH 03/03/21 11:17 7,500 units .BOLUS ONE Administration Ceftriaxone Sodium/Dextrose 1 50 mls @ 100 mls/hr 03/03/21 10:23 03/03/21 11:08 gm/ Premix IV 03/03/21 10:52 100 mls/hr ONETIME ONE Administration Departure - Departure Time of Disposition: 13:53 Disposition: Refer to Observation Condition: Good Clinical Impression: Pulmonary embolism, COVID - Discharge Information Sepsis Event Note (ED) - Focused Exam Vital Signs: Vital Signs Temp Pulse Resp BP Pulse Ox 03/03/21 11:09 85 18 108/70 95 03/03/21 09:02 82 20 93/60 95 03/03/21 08:32 82 18 98/56 L 94 L 03/03/21 07:30 36.6 C 94 19 105/56 L 93 L - My Orders Last 24 Hours: My Active Orders 03/03/21 10:30 Azithromycin [Zithromax] 500 mg Sodium Chloride 0.9% [Normal Saline AdvBag] 250 ml IV ONETIME 03/03/21 11:30 Heparin Sodium/0.45% NaCl [Heparin 25,000 Units in 1/2 NS 500 ML] 500 ml IV TITRATE - Assessment/Plan Last 24 Hours: My Active Orders 03/03/21 10:30 Azithromycin [Zithromax] 500 mg Sodium Chloride 0.9% [Normal Saline AdvBag] 250 ml IV ONETIME 03/03/21 11:30 Heparin Sodium/0.45% NaCl [Heparin 25,000 Units in 1/2 NS 500 ML] 500 ml IV TITRATE
[2021-03-03 08:14] LABS: BLOOD UREA NITROGEN,BUN 58 mg/dL (7.0-18.0); CHLORIDE,CL 102 mmol/L (98-107); GLUCOSE RANDOM 92 mg/dL (74-106); LIPASE 256 U/L (73-393); POTASSIUM,K 4.6 mmol/L (3.5-5.1); SODIUM,NA 139 mmol/L (136-148)
[2021-03-03 08:25] LABS: CARBON DIOXIDE,CO2 28.8 mmol/L (21.0-32.0)
--- NOTE | 2021-03-03 10:21 | CT ---
Indication: Shortness of breath history of nunez virus infection Technique: Volumetric multidetector CT images of the chest were obtained after the administration of IV contrast. 100 cc Isovue 370 low osmolar intravenous contrast Comparison: None available. Findings: The thoracic inlet and thyroid gland are unremarkable. The thoracic aorta is nonaneurysmal. There are questionable small filling defects in the peripheral right lower lobe subsegmental pulmonary arteries. There is no evidence of large central pulmonary embolus. There are reactive mediastinal and hilar lymph nodes. There is central bronchial thickening with mucoid impaction of the lower lobe bronchi. There developing airspace opacities in the left greater than right lung bases commensurate with developing multifocal infiltrates with additional somewhat nodular foci in the peripheral upper lobes which may represent additional developing infiltrates. There are pulmonary nodules seen in the medial right upper lobe measuring 8.3 millimeters in greatest dimension seen on series 701, image 42. The partially visualized upper abdomen demonstrates extensive cystic changes of the left kidney. The thoracic vertebral body heights are grossly maintained with minimal endplate Schmorl`s defects. There is no significant spondylolisthesis or displaced fracture. Impression: Demonstration of questionable filling defects within the right lower lobe subsegmental pulmonary arteries which may represent small pulmonary emboli. No evidence of large central filling defect is seen. Developing airspace opacities within the peripheral right greater than left lung cancer with developing infiltrates. Additional pulmonary nodules are appreciated within the peripheral right upper lobe. Please note that all CT scans at this facility use dose modulation, iterative reconstruction, and/or weight-based dosing when appropriate to reduce radiation dose to as low as reasonably achievable. Dictated by Emiliano Matute MD @ 03/03/2021 10:20:52 AM (Electronically Signed)
[2021-03-03] MEDS ORDERED: cefTRIAXone 1 GM in Premix Bag 1 BAG IV ONE (10:23)
[2021-03-03] MEDS ORDERED: Enoxaparin 150 MG/1 ML Syringe SUBCUT ONE (10:24)
[2021-03-03] MEDS ORDERED: Azithromycin 500 MG in Sodium Chloride 0.9% 250 ML IV SCH (10:30)
[2021-03-03] MEDS ORDERED: Heparin Sodium 5,000 Units/ML Vial IVPUSH ONE ×2 (11:16→21:38)
[2021-03-03] MEDS: Heparin Sodium/0.45% NaCl 500 ML IV SCH (11:57)
[2021-03-03] MEDS ORDERED: Albuterol/Ipratropium 3.0-0.5 MG/3 ML Neb Soln NEB PRN (15:39)
[2021-03-03] MEDS ORDERED: Iopamidol 755 MG/ML 500 ML Multipack Bottle IVPUSH STA (15:47)
--- NOTE | 2021-03-03 15:49 | PCM.HP.2 ---
H&P History of Present Illness - General Date of Service: 03/03/21 Admit Problem/Dx: Admission Diagnosis/Problem Admission Diagnosis/Problem PE, Pulmonary embolism - History of Present Illness Initial Comments - Free Text/Narative: 61-year-old male history of end-stage renal disease, on dialysis Wednesday and Wednesday, history of cardiomyopathy with ejection fraction of 20%, who was Covid diagnosed on 10 February, presents to the emergency department complaining of chest pain. It is at the bilateral lower rib area. It is worse when he takes a deep breath in and lays flat. He describes it as a muscle ache. Patient has had recent Covid and has had some lingering cough but no fevers or productive sputum. Patient denies any leg swelling. No history of blood clots. No recent travel or injury or cancer or surgeries. Moderate symptoms. Patient last dialyzed on Wednesday with a normal dialysis , CTA PE study was done which showed possible small PE, patient was started on heparin drip. Given that p atient had no concerns of rhythm overload and did not need emergent dialysis patient was admitted to the hospital overnight for observation and possible transition to oral anticoagulants in the a.m. with anticipated discharge in a.m. Patient was not hypoxic and was not requiring any oxygen supplementation. Of note patient did receive monoclonal antibodies for his recent onset of Covid pneumonia ER physician spoke to nephrology at [facility] (Dr Peace) who recommends the patient can be transitioned to apixaban. Patient is being admitted for overnight observation to MedSurg unit. upper abdomen Pain Score (Numeric/FACES): 4 - Related Data Allergies/Adverse Reactions: Allergies Allergy/AdvReac Type Severity Reaction Status Date / Time No Known Allergies Allergy Verified 03/03/21 07:55 Home Medications: Home Meds Simvastatin [Zocor] 20 mg PO BEDTIME 10/22/15 [History] carvediloL [Coreg] 25 mg PO BIDMEALS 02/02/16 [History] buPROPion [buPROPion XL] 300 mg PO DAILY 04/11/19 [History] Past Medical History HEENT History: Reports: None Cardiovascular History: Reports: Congenital Septal Defect, Heart Failure, High Cholesterol, Hypertension, Stents, Other (See Below) Other Cardiovascular History: Left ventricle weakness, Respiratory History: Reports: None Gastrointestinal History: Reports: None Genitourinary History: Reports: Dialysis, Renal Disease Other Genitourinary History: bergers disease 1997 Musculoskeletal History: Reports: Gout Neurological History: Reports: None Psychiatric History: Reports: Anxiety, Depression Other Psychiatric History: on medications but unable to recall Endocrine/Metabolic History: Reports: None Hematologic History: Reports: None Immunologic History: Reports: None Oncologic (Cancer) History: Reports: None Dermatologic History: Reports: None - Infectious Disease History Infectious Disease History: Reports: None - Past Surgical History Head Surgeries/Procedures: Reports: None HEENT Surgical History: Reports: None Cardiovascular Surgical History: Reports: Other (See Below) Other Cardiovascular Surgeries/Procedures: Defibrillator Respiratory Surgical History: Reports: None GI Surgical History: Reports: None Endocrine Surgical History: Reports: None Neurological Surgical History: Reports: None Musculoskeletal Surgical History: Reports: None Oncologic Surgical History: Reports: None Dermatological Surgical History: Reports: None Social & Family History - Family History Family Medical History: No Pertinent Family History - Tobacco Use Tobacco Use Status *Q: Never Tobacco User Second Hand Smoke Exposure: No - Caffeine Use Caffeine Use: Reports: None - Recreational Drug Use Recreational Drug Use: No H&P Review of Systems - Review of Systems: Review Of Systems: See Below General: Reports: Weakness, Fatigue. Denies: Fever, Chills, Malaise Pulmonary: Reports: Shortness of Breath, Pleuritic Chest Pain, Cough. Denies: Wheezing Gastrointestinal: Denies: Abdominal Pain, Anorexia, Black Stool Genitourinary: Denies: Dysuria, Frequency, Burning Musculoskeletal: Denies: Neck Pain, Shoulder Pain, Arm Pain Skin: Denies: Cyanosis, Jaundice, Mottled Psychiatric: Denies: Confusion, Depression, Mood Lability Neurological: Denies: Confusion, Dizziness, Headache Exam - Exam Exam: See Below - Vital Signs Vital Signs: Last Vital Signs Temp 36.6 C 03/03/21 07:30 Pulse 86 03/03/21 13:00 Resp 17 03/03/21 13:00 BP 92/62 03/03/21 13:00 Pulse Ox 94 L 03/03/21 13:00 Weight: 113.398 kg - Exam Quality Assessment: No: Supplemental Oxygen General: Alert, Oriented HEENT: Conjunctiva Clear Neck: Supple, Trachea Midline Lungs: Normal Respiratory Effort, Decreased Breath Sounds, Rales Cardiovascular: Regular Rate, Regular Rhythm GI/Abdominal Exam: Normal Bowel Sounds, Soft, Non-Tender Extremities: Normal Inspection, Normal Range of Motion, Non-Tender, No Pedal Edema - Patient Data Lab Results Last 24 hrs: Laboratory Results - last 24 hr 03/03/21 03/03/21 03/03/21 Range/Units 07:40 07:40 07:40 WBC 7.92 (4.0-11.0) K/uL RBC 3.12 L (4.50-5.90) M/uL Hgb 10.2 L (13.0-17.0) g/dL Hct 31.9 L (38.0-50.0) % MCV 102.2 H (80.0-98.0) fL MCH 32.7 H (27.0-32.0) pg MCHC 32.0 (31.0-37.0) g/dL RDW Std Deviation 50.5 (28.0-62.0) fl RDW Coeff of Marcus 14 (11.0-15.0) % Plt Count 286 (150-400) K/uL MPV 9.70 (7.40-12.00) fL Neut % (Auto) 79.6 (48.0-80.0) % Lymph % (Auto) 11.2 L (16.0-40.0) % Delta % (Auto) 8.3 (0.0-15.0) % Eos % (Auto) 0.8 (0.0-7.0) % Baso % (Auto) 0.1 (0.0-1.5) % Neut # (Auto) 6.3 H (1.4-5.7) K/uL Lymph # (Auto) 0.9 (0.6-2.4) K/uL Delta # (Auto) 0.7 (0.0-0.8) K/uL Eos # (Auto) 0.1 (0.0-0.7) K/uL Baso # (Auto) 0.0 (0.0-0.1) K/uL Nucleated RBC % 0.0 /100WBC Nucleated RBCs # 0 K/uL APTT 38.5 H (18.6-31.3) SEC D-Dimer, Quantitative 1.17 H (0.0-0.50) mg/L FEU Sodium 139 (136-148) mmol/L Potassium 4.6 (3.5-5.1) mmol/L Chloride 102 (98-107) mmol/L Carbon Dioxide 28.8 (21.0-32.0) mmol/L BUN 58 H (7.0-18.0) mg/dL Creatinine 9.2 H (0.8-1.3) mg/dL Est Cr Clr Drug Dosing 8.93 mL/min Estimated GFR (MDRD) 5.9 ml/min Glucose 92 (74-106) mg/dL Calcium 9.2 (8.5-10.1) mg/dL Total Bilirubin 0.4 (0.2-1.0) mg/dL AST 11 L (15-37) IU/L ALT 13 L (14-63) IU/L Alkaline Phosphatase 49 (46-116) U/L Troponin I < 0.050 (0.000-0.056) ng/mL B-Natriuretic Peptide (<100) PG/ML Total Protein 7.3 (6.4-8.2) g/dL Albumin 2.5 L (3.4-5.0) g/dL Globulin 4.8 H (2.6-4.0) g/dL Albumin/Globulin Ratio 0.5 L (0.9-1.6) Lipase 256 (73-393) U/L SARS-CoV-2 RNA (DAVONTE) (NEGATIVE) 03/03/21 03/03/21 Range/Units 07:40 08:00 WBC (4.0-11.0) K/uL RBC (4.50-5.90) M/uL Hgb (13.0-17.0) g/dL Hct (38.0-50.0) % MCV (80.0-98.0) fL MCH (27.0-32.0) pg MCHC (31.0-37.0) g/dL RDW Std Deviation (28.0-62.0) fl RDW Coeff of Marcus (11.0-15.0) % Plt Count (150-400) K/uL MPV (7.40-12.00) fL Neut % (Auto) (48.0-80.0) % Lymph % (Auto) (16.0-40.0) % Delta % (Auto) (0.0-15.0) % Eos % (Auto) (0.0-7.0) % Baso % (Auto) (0.0-1.5) % Neut # (Auto) (1.4-5.7) K/uL Lymph # (Auto) (0.6-2.4) K/uL Delta # (Auto) (0.0-0.8) K/uL Eos # (Auto) (0.0-0.7) K/uL Baso # (Auto) (0.0-0.1) K/uL Nucleated RBC % /100WBC Nucleated RBCs # K/uL APTT (18.6-31.3) SEC D-Dimer, Quantitative (0.0-0.50) mg/L FEU Sodium (136-148) mmol/L Potassium (3.5-5.1) mmol/L Chloride (98-107) mmol/L Carbon Dioxide (21.0-32.0) mmol/L BUN (7.0-18.0) mg/dL Creatinine (0.8-1.3) mg/dL Est Cr Clr Drug Dosing mL/min Estimated GFR (MDRD) ml/min Glucose (74-106) mg/dL Calcium (8.5-10.1) mg/dL Total Bilirubin (0.2-1.0) mg/dL AST (15-37) IU/L ALT (14-63) IU/L Alkaline Phosphatase (46-116) U/L Troponin I (0.000-0.056) ng/mL B-Natriuretic Peptide 654 H (<100) PG/ML Total Protein (6.4-8.2) g/dL Albumin (3.4-5.0) g/dL Globulin (2.6-4.0) g/dL Albumin/Globulin Ratio (0.9-1.6) Lipase (73-393) U/L SARS-CoV-2 RNA (DAVONTE) POSITIVE H (NEGATIVE) Result Diagrams: 03/03/21 07:40 03/03/21 07:40 Sepsis Event Note - Evaluation Sepsis Screening Result: No Definite Risk - Focused Exam Vital Signs: Vital Signs Temp Pulse Resp BP Pulse Ox 03/03/21 13:00 86 17 92/62 94 L 03/03/21 11:09 85 18 108/70 95 03/03/21 09:02 82 20 93/60 95 03/03/21 08:32 82 18 98/56 L 94 L 03/03/21 07:30 36.6 C 94 19 105/56 L 93 L - Problem List (1) ESRD (end stage renal disease) SNOMED Code(s): 84563624 ICD Code: N18.6 - END STAGE RENAL DISEASE Status: Acute Current Visit: Yes (2) COVID SNOMED Code(s): 169547713 ICD Code: U07.1 - COVID-19 Status: Acute Current Visit: Yes (3) Pulmonary embolism SNOMED Code(s): 53737835 ICD Code: I26.99 - OTHER PULMONARY EMBOLISM WITHOUT ACUTE COR PULMONALE Status: Acute Current Visit: Yes (4) COVID-19 SNOMED Code(s): 119368108 ICD Code: U07.1 - COVID-19 Status: Acute Current Visit: No (5) Cardiomyopathy SNOMED Code(s): 95455984 ICD Code: I42.9 - CARDIOMYOPATHY, UNSPECIFIED Status: Acute Current Visit: No Problem List Initiated/Reviewed/Updated: Yes Orders Last 24hrs: Active Orders 24 hr Category Date Time Status Admission Status [Patient Status] [ADT] Stat ADT 03/03/21 12:08 Active Ambulate [RC] ASDIRECTED Care 03/03/21 15:39 Active Antiembolic Devices [RC] PER UNIT ROUTINE Care 03/03/21 15:40 Active Cardiac Monitoring [RC] . DIRECTED Care 03/03/21 12:08 Active Oxygen Therapy [RC] PRN Care 03/03/21 15:39 Active RT Aerosol Therapy [RC] ASDIRECTED Care 03/03/21 15:40 Active VTE/DVT Education [RC] PER UNIT ROUTINE Care 03/03/21 15:39 Active Vital Signs [RC] Q4H Care 03/03/21 15:39 Active aPTT [PTT,PARTIAL THROMBOPLSTIN TIME] [COAG] Q6H Lab 03/04/21 00:00 Ordered aPTT [PTT,PARTIAL THROMBOPLSTIN TIME] [COAG] Q6H Lab 03/04/21 06:00 Ordered aPTT [PTT,PARTIAL THROMBOPLSTIN TIME] [COAG] Q6H Lab 03/04/21 12:00 Ordered Albuterol/Ipratropium [DuoNeb 3.0-0.5 MG/3 ML] Med 03/03/21 15:39 Ordered 3 ml NEB Q4HRRT PRN Azithromycin [Zithromax] 500 mg Med 03/03/21 10:30 Active Sodium Chloride 0.9% [Normal Saline AdvBag] 250 ml IV ONETIME Heparin Sodium/0.45% NaCl [Heparin 25,000 Units in 1/2 Med 03/03/21 11:30 Active NS 500 ML] 500 ml IV TITRATE Simvastatin [Zocor] Med 03/03/21 21:00 Ordered 10 mg PO BEDTIME buPROPion [Wellbutrin XL] Med 03/04/21 09:00 Ordered 150 mg PO DAILY carvediloL [Coreg] Med 03/03/21 21:00 Ordered 25 mg PO BID Sequential Compression Device [OM.PC] Per Unit Routine Oth 03/03/21 15:39 Ordered Resuscitation Status Routine Resus Stat 03/03/21 15:39 Ordered Medication Orders Albuterol/Ipratropium (Albuterol/Ipratropium 3.0-0.5 Mg/3 Ml Neb Soln) 3 ml NEB Q4HRRT PRN PRN Reason: Shortness Of Breath/wheezing Bupropion HCl (Bupropion 150 Mg Tab.Er) 150 mg PO DAILY JIMENA Carvedilol (Carvedilol 25 Mg Tab) 25 mg PO BID JIMENA Azithromycin 500 mg/ Sodium (Chloride) 250 mls @ 250 mls/hr IV ONETIME JIMENA Last Admin: 03/03/21 11:56 Dose: 250 mls/hr Documented by: JOSE MANUEL Heparin Sodium/Sodium Chloride (Heparin 25,000 Units In 1/2 Ns 500 Ml) 500 mls @ 27.216 mls/hr IV TITRATE JIMENA; Protocol Last Admin: 03/03/21 11:57 Dose: 12 units/kg/hr, 27.216 mls/hr Documented by: JOSE MANUEL Cosigned by: NICHOLAS Simvastatin (Simvastatin 10 Mg Tab) 10 mg PO BEDTIME JIMENA Assessment/Plan Comment:: 61-year-old male admitted for PE in setting of recent diagnosis of Covid Patient is not hypoxic Patient has been started on heparin drip and will likely be transitioned to oral apixaban tomorrow upon discharge Continue telemetry monitoring and hemodynamic monitoring Blood pressure is soft but based on patient's history looks like patient has soft blood pressure at baseline Renal diet Duo nebs as needed for shortness of breath Does not need remdesivir as patient is not hypoxic Has already received monoclonal antibodies Continue to monitor closely Resume home meds as appropriate once med rec is done
[2021-03-03] MEDS: Carvedilol 25 MG Tab PO SCH (19:58)
[2021-03-03] MEDS ORDERED: Simvastatin 20 MG Tab PO SCH (21:00)
[2021-03-04 03:33] LABS: CARBON DIOXIDE,CO2 27.5 mmol/L (21.0-32.0); POTASSIUM,K 4.5 mmol/L (3.5-5.1)
[2021-03-04] MEDS: Heparin Sodium/0.45% NaCl 500 ML IV SCH (06:46)
[2021-03-04] MEDS: Carvedilol 25 MG Tab PO SCH (08:43)
[2021-03-04 08:45] VITALS: BP 122/83; PULSE 100
[2021-03-04] MEDS ORDERED: buPROPion 150 MG Tab.ER PO SCH (09:00)
[2021-03-04] MEDS ORDERED: Apixaban 5 MG Tab PO ONE (09:45)
--- NOTE | 2021-03-04 09:53 | PCM.DCSUM1 ---
Discharge Summary - Hospital Course Free Text/Narrative:: The patient is a 61-year-old male, who has a significant past medical history of end-stage renal disease on dialysis Wednesday, Wednesdays, and Fridays, and cardiomyopathy, who was admitted to the medical floor due to small pulmonary emboli found in his vasculature. Throughout his hospital course the patient was treated with a heparin drip to reduce the chances of additional clots, and duo nebulizer treatments for shortness of breath. He was also placed on a telemetry monitor/telemetry to assess for any abnormal electrical activity of his heart. His relay associate was contacted who recommended transitioning to apixaban upon discharge when stopping the heparin drip. The patient will be given apixaban prior to discharge and be sent home on a prescription of the same medication, 10 mg to be taking twice a day per oral route for the first week, and 5 mg twice to be taken twice a day per oral route then on afterwards. He is to follow-up with his PCP and his relay associate after discharge. The patient also tested positive for COVID-19 pneumonia but was not hypoxic and as a result did not require any dexamethasone or remdesivir treatment. The patient has been educated on being compliant with his medication and taking them at scheduled times. - Discharge Data Discharge Date: 03/04/21 Discharge Disposition: Home, Self-Care 01 Condition: Fair - Referral to Home Health Primary Care Physician: Kishore Garcia MD - Patient Instructions Diet: Renal Diet Activity: As Tolerated Showering/Bathing: May Shower Other/Special Instructions: -Come back to the hospital if you experience any chest pain, palpitations, shortness of breath, or worsening cough. -Be compliant with your medication and take them at scheduled times. -Follow-up with your PCP in 1 to 2 weeks time. -Follow-up with your relay associate - Discharge Plan Prescriptions/Med Rec: Apixaban [Eliquis] 5 mg PO BID #70 tablet Home Medications: Home Meds Simvastatin [Zocor] 20 mg PO BEDTIME 10/22/15 [History] carvediloL [Coreg] 25 mg PO BIDMEALS 02/02/16 [History] buPROPion [buPROPion XL] 300 mg PO DAILY 04/11/19 [History] Apixaban [Eliquis] 5 mg PO BID #70 tablet 03/04/21 [Rx] Patient Handouts: Pulmonary Embolism, Apixaban oral tablets Referrals: Kishore Garcia MD [Primary Care Provider] - 03/14/21 8:30 am (Please arrive 15 minutes before appointment time. Please wear mask. Bring photo ID and insurance.) - Discharge Summary/Plan Comment DC Time >30 min.: Yes Total # of Minutes for Discharge Time: 35 minutes - Review of Systems General: Denies: Fever, Fatigue HEENT: Denies: Headaches, Sore Throat Pulmonary: Denies: Shortness of Breath, Cough Cardiovascular: Denies: Chest Pain, Palpitations Gastrointestinal: Denies: Abdominal Pain Genitourinary: Denies: Dysuria - Patient Data Vitals - Most Recent: Last Vital Signs Temp 97.1 F 03/04/21 08:45 Pulse 100 03/04/21 08:45 Resp 18 03/04/21 08:45 BP 122/83 03/04/21 08:45 Pulse Ox 92 L 03/04/21 08:45 Weight - Most Recent: 249 lb 12.54 oz I&O - Last 24 hours: Intake & Output 03/03/21 03/04/21 03/04/21 22:59 06:59 14:59 Intake Total 400 Output Total 0 Balance 400 Lab Results - Last 24 hrs: Laboratory Results - last 24 hr 03/03/21 03/03/21 03/04/21 Range/Units 08:00 18:12 03:05 WBC 6.24 (4.0-11.0) K/uL RBC 2.82 L (4.50-5.90) M/uL Hgb 9.3 L (13.0-17.0) g/dL Hct 28.9 L (38.0-50.0) % MCV 102.5 H (80.0-98.0) fL MCH 33.0 H (27.0-32.0) pg MCHC 32.2 (31.0-37.0) g/dL RDW Std Deviation 50.2 (28.0-62.0) fl RDW Coeff of Marcus 13 (11.0-15.0) % Plt Count 267 (150-400) K/uL MPV 9.50 (7.40-12.00) fL Neut % (Auto) 71.5 (48.0-80.0) % Lymph % (Auto) 19.2 (16.0-40.0) % [place] % (Auto) 8.0 (0.0-15.0) % Eos % (Auto) 1.1 (0.0-7.0) % Baso % (Auto) 0.2 (0.0-1.5) % Neut # (Auto) 4.5 (1.4-5.7) K/uL Lymph # (Auto) 1.2 (0.6-2.4) K/uL [place] # (Auto) 0.5 (0.0-0.8) K/uL Eos # (Auto) 0.1 (0.0-0.7) K/uL Baso # (Auto) 0.0 (0.0-0.1) K/uL Nucleated RBC % 0.0 /100WBC Nucleated RBCs # 0 K/uL APTT 36.9 H (18.6-31.3) SEC Sodium (136-148) mmol/L Potassium (3.5-5.1) mmol/L Chloride (98-107) mmol/L Carbon Dioxide (21.0-32.0) mmol/L BUN (7.0-18.0) mg/dL Creatinine (0.8-1.3) mg/dL Est Cr Clr Drug Dosing mL/min Estimated GFR (MDRD) ml/min Glucose (74-106) mg/dL Calcium (8.5-10.1) mg/dL SARS-CoV-2 RNA (DAVONTE) POSITIVE H (NEGATIVE) 03/04/21 03/04/21 03/04/21 Range/Units 03:05 03:05 08:59 WBC (4.0-11.0) K/uL RBC (4.50-5.90) M/uL Hgb (13.0-17.0) g/dL Hct (38.0-50.0) % MCV (80.0-98.0) fL MCH (27.0-32.0) pg MCHC (31.0-37.0) g/dL RDW Std Deviation (28.0-62.0) fl RDW Coeff of Marcus (11.0-15.0) % Plt Count (150-400) K/uL MPV (7.40-12.00) fL Neut % (Auto) (48.0-80.0) % Lymph % (Auto) (16.0-40.0) % [place] % (Auto) (0.0-15.0) % Eos % (Auto) (0.0-7.0) % Baso % (Auto) (0.0-1.5) % Neut # (Auto) (1.4-5.7) K/uL Lymph # (Auto) (0.6-2.4) K/uL [place] # (Auto) (0.0-0.8) K/uL Eos # (Auto) (0.0-0.7) K/uL Baso # (Auto) (0.0-0.1) K/uL Nucleated RBC % /100WBC Nucleated RBCs # K/uL APTT 51.7 H 33.6 H (18.6-31.3) SEC Sodium 139 (136-148) mmol/L Potassium 4.5 (3.5-5.1) mmol/L Chloride 102 (98-107) mmol/L Carbon Dioxide 27.5 (21.0-32.0) mmol/L BUN 70 H (7.0-18.0) mg/dL Creatinine 10.0 H (0.8-1.3) mg/dL Est Cr Clr Drug Dosing 8.21 mL/min Estimated GFR (MDRD) 5.4 ml/min Glucose 90 (74-106) mg/dL Calcium 8.1 L (8.5-10.1) mg/dL SARS-CoV-2 RNA (DAVONTE) (NEGATIVE) Med Orders - Current: Current Medications Albuterol/Ipratropium (Albuterol/Ipratropium 3.0-0.5 Mg/3 Ml Neb Soln) 3 ml NEB Q4HRRT PRN PRN Reason: Shortness Of Breath/wheezing Bupropion HCl (Bupropion 150 Mg Tab.Er) 300 mg PO DAILY [facility] Last Admin: 03/04/21 08:44 Dose: 300 mg Documented by: Carvedilol (Carvedilol 25 Mg Tab) 25 mg PO BIDMEALS [facility] Last Admin: 03/04/21 08:43 Dose: 25 mg Documented by: Azithromycin 500 mg/ Sodium (Chloride) 250 mls @ 250 mls/hr IV ONETIME [facility] Last Admin: 03/03/21 11:56 Dose: 250 mls/hr Documented by: Heparin Sodium/Sodium Chloride (Heparin 25,000 Units In 1/2 Ns 500 Ml) 500 mls @ 27.216 mls/hr IV TITRATE JIMENA; Protocol Last Admin: 03/04/21 06:46 Dose: 14 units/kg/hr, 31.751 mls/hr Documented by: Simvastatin (Simvastatin 20 Mg Tab) 20 mg PO BEDTIME JIMENA Last Admin: 03/03/21 22:08 Dose: 20 mg Documented by: Discontinued Medications Apixaban (Apixaban 5 Mg Tab) 10 mg PO NOW ONE Stop: 03/04/21 09:46 Enoxaparin Sodium (Enoxaparin 150 Mg/1 Ml Syringe) 110 mg SUBCUT ONETIME ONE Stop: 03/03/21 10:25 Last Admin: 03/03/21 11:00 Dose: Not Given Documented by: Heparin Sodium (Porcine) (Heparin Sodium 5,000 Units/Ml Vial) 7,500 units IVPUSH .BOLUS ONE Stop: 03/03/21 11:17 Last Admin: 03/03/21 11:57 Dose: 7,500 units Documented by: Heparin Sodium (Porcine) (Heparin Sodium 5,000 Units/Ml Vial) 1,500 units IVPUSH ONETIME ONE Stop: 03/03/21 21:39 Last Admin: 03/03/21 22:09 Dose: 1,500 units Documented by: Ceftriaxone Sodium/Dextrose 1 (gm/ Premix) 50 mls @ 100 mls/hr IV ONETIME ONE Stop: 03/03/21 10:52 Last Admin: 03/03/21 11:08 Dose: 100 mls/hr Documented by: Iopamidol (Iopamidol 755 Mg/Ml 500 Ml Multipack Bottle) 100 ml IVPUSH ONETIME STA Stop: 03/03/21 15:48 Last Admin: 03/03/21 15:50 Dose: 100 ml Documented by: - Exam General: Reports: Alert, Oriented, Cooperative HEENT: Reports: Mucous Membr. Moist/[place] Neck: Reports: Trachea Midline Lungs: Reports: Clear to Auscultation, Normal Respiratory Effort Cardiovascular: Reports: Regular Rate, Regular Rhythm GI/Abdominal Exam: Normal Bowel Sounds, Soft, Non-Tender
== END 2021-03-04 11:50 | disposition home or self-care (01) ==
LOC: MW.ED 07:27 → MW.MS 12:08
PROVIDERS: ADMIT Student in an Organized Health Care Education/Training Program; ATTEND Student in an Organized Health Care Education/Training Program
DX: I26.99 Other pulmonary embolism without acute cor pulmonale (principal); U07.1 COVID-19; N18.6 End stage renal disease; I42.9 Cardiomyopathy, unspecified; Z99.2 Dependence on renal dialysis; Z79.899 Other long term (current) drug therapy
CPT/HCPCS: 36415; 71275; 80048; 80053; 83690; 83880; 84484; 85025; 85379; 85730; 93005; A9270; J0456; J0696; J1644; J7050; Q9967; U0002

== ENCOUNTER 2021-09-03 16:59 | Observation (INO) | payer MEDICARE, BC ==
[2021-09-03] MEDS ORDERED: Sodium Chloride 0.9% 2.5 ML Syringe FLUSH PRN (17:28)
[2021-09-03] MEDS ORDERED: Sodium Chloride 0.9% 10 ML Syringe FLUSH PRN (17:28)
[2021-09-03] MEDS ORDERED: Sodium Chloride 0.9% 500 ML IV SCH (17:30)
[2021-09-03 17:49] LABS: CARBON DIOXIDE,CO2 30.3 mmol/L (21.0-32.0); POTASSIUM,K 3.9 mmol/L (3.5-5.1)
[2021-09-03] MEDS ORDERED: Carvedilol 25 MG Tab PO ONE (17:53)
[2021-09-03] MEDS ORDERED: Metoprolol Tartrate 5 MG/5 ML SDV IVPUSH ONE (18:41)
[2021-09-03] MEDS ORDERED: Iopamidol 755 MG/ML 500 ML Multipack Bottle IVPUSH STA (19:15)
[2021-09-03] MEDS: Heparin Sodium 5,000 Units/ML Vial SUBCUT SCH (23:29)
[2021-09-04] MEDS ORDERED: Sevelamer Carbonate 800 MG Tab PO SCH (06:00)
[2021-09-04] MEDS: Heparin Sodium 5,000 Units/ML Vial SUBCUT SCH (06:22)
[2021-09-04] MEDS ORDERED: Carvedilol 25 MG Tab PO SCH (08:00)
[2021-09-04] MEDS: Sevelamer Carbonate 800 MG Tab PO SCH ×2 (08:05→13:56)
[2021-09-04 08:09] LABS: CARBON DIOXIDE,CO2 24.7 mmol/L (21.0-32.0); POTASSIUM,K 4.3 mmol/L (3.5-5.1)
[2021-09-04] MEDS ORDERED: Ondansetron 4 MG/2 ML SDV IVPUSH PRN (15:04)
[2021-09-04 16:02] VITALS: BP 109/62; PULSE 94
[2021-09-04] MEDS ORDERED: Simvastatin 20 MG Tab PO SCH (21:00)
== END 2021-09-04 16:00 | disposition home or self-care (01) ==
LOC: MW.ED 16:59 → MW.MS 21:12
PROVIDERS: ADMIT Student in an Organized Health Care Education/Training Program; ATTEND Student in an Organized Health Care Education/Training Program
DX: R00.0 Tachycardia, unspecified (principal); I12.0 Hypertensive chronic kidney disease with stage 5 chronic kidney disease or end stage renal disease; N18.6 End stage renal disease; I42.9 Cardiomyopathy, unspecified; M10.9 Gout, unspecified; F41.9 Anxiety disorder, unspecified; F32.A Depression, unspecified; Z20.822 Contact with and (suspected) exposure to COVID-19; Z99.2 Dependence on renal dialysis; Z86.16 Personal history of COVID-19; Z79.899 Other long term (current) drug therapy
CPT/HCPCS: 36415; 71045; 71275; 80053; 81001; 83735; 84443; 85025; 93005; 96374; 99285; A9270; J1644; J2405; J3490; J7040; Q9967; U0002; 93010; 96372; 96375; G0378

== ENCOUNTER 2021-09-15 17:58 | Emergency (ER) | payer MEDICARE, BC ==
[2021-09-15 19:11] VITALS: BP 102/55; PULSE 107
== END 2021-09-15 19:09 | disposition home or self-care (01) ==
LOC: MW.ED 17:58
DX: R00.0 Tachycardia, unspecified (principal); I13.0 Hypertensive heart and chronic kidney disease with heart failure and stage 1 through stage 4 chronic kidney disease, or unspecified chronic kidney disease; N18.9 Chronic kidney disease, unspecified; I50.9 Heart failure, unspecified; E78.00 Pure hypercholesterolemia, unspecified; Z86.16 Personal history of COVID-19; Z79.899 Other long term (current) drug therapy
CPT/HCPCS: 93005; 99284-25

== ENCOUNTER 2021-10-15 17:03 | Observation (INO) | payer MEDICARE, BC ==
[2021-10-15 17:56] LABS: CARBON DIOXIDE,CO2 29.8 mmol/L (21.0-32.0); POTASSIUM,K 3.7 mmol/L (3.5-5.1)
[2021-10-15] MEDS ORDERED: Amiodarone 200 MG Tab PO ONE (20:27)
[2021-10-15] MEDS ORDERED: Potassium Chloride 20 MEQ in Premix Bag 1 BAG IV ONE (20:28)
[2021-10-15] MEDS ORDERED: Magnesium Sulfate/Water 2 GM in Premix Bag 1 BAG IV ONE (20:52)
[2021-10-15] MEDS ORDERED: Sodium Chloride 0.9% 500 ML IV SCH (21:45)
[2021-10-15] MEDS ORDERED: Acetaminophen 325 MG Tab PO PRN (22:58)
[2021-10-15] MEDS ORDERED: Albuterol/Ipratropium 3.0-0.5 MG/3 ML Neb Soln NEB PRN (22:58)
[2021-10-16] MEDS: Carvedilol 25 MG Tab PO SCH ×2 (03:12→08:57)
[2021-10-16] MEDS ORDERED: Sevelamer Carbonate 800 MG Tab PO SCH (06:00)
[2021-10-16 06:46] LABS: CARBON DIOXIDE,CO2 27.6 mmol/L (21.0-32.0)
[2021-10-16] MEDS ORDERED: Carvedilol 25 MG Tab PO SCH (08:00)
[2021-10-16 08:58] VITALS: BP 97/65; PULSE 88
[2021-10-16] MEDS ORDERED: buPROPion 150 MG Tab.ER PO SCH (09:00)
[2021-10-16] MEDS ORDERED: Amiodarone 200 MG Tab PO SCH (09:00)
[2021-10-16] MEDS ORDERED: Simvastatin 10 MG Tab PO SCH (21:00)
== END 2021-10-16 10:15 | disposition home or self-care (01) ==
LOC: MW.ED 17:03 → UNDOADMOB 21:08 → MW.MS 21:08
PROVIDERS: ADMIT Student in an Organized Health Care Education/Training Program; ATTEND Student in an Organized Health Care Education/Training Program
DX: I47.2 Ventricular tachycardia (principal); E78.00 Pure hypercholesterolemia, unspecified; I13.2 Hypertensive heart and chronic kidney disease with heart failure and with stage 5 chronic kidney disease, or end stage renal disease; I50.9 Heart failure, unspecified; F41.9 Anxiety disorder, unspecified; F32.A Depression, unspecified; N18.6 End stage renal disease; I26.99 Other pulmonary embolism without acute cor pulmonale; I42.0 Dilated cardiomyopathy; Z20.822 Contact with and (suspected) exposure to COVID-19
CPT/HCPCS: 36415; 71045; 80048; 80053; 83735; 84100; 84484; 85025; 93005; 96365; 96366; 96367; 99285; A9270; G0378; J3475; J3480; J7040; U0002; 93010

== ENCOUNTER 2022-01-30 16:55 | Emergency (ER) | payer MEDICARE, BC | END 2022-01-30 18:17 | disposition home or self-care (01) | LOC: MW.ED 16:55 | DX: Z45.018 Encounter for adjustment and management of other part of cardiac pacemaker (principal) | CPT/HCPCS: 99284 ==

== ENCOUNTER 2022-07-18 23:18 | Emergency (ER) | payer MEDICARE, BC ==
[2022-07-18] MEDS ORDERED: Aspirin 81 MG Tab.Chew PO ONE (23:24)
[2022-07-19 00:25] LABS: POTASSIUM,K 5.5 mmol/L (3.5-5.1)
[2022-07-19 00:26] LABS: CORONAVIRUS COVID-19 NAA NEGATIVE (NEGATIVE); INFLUENZA A NAA NEGATIVE (NEGATIVE); INFLUENZA B NAA NEGATIVE (NEGATIVE)
[2022-07-19] MEDS ORDERED: Morphine 2 MG/ML SYRINGE IVPUSH ONE ×5 (00:27→07:19)
[2022-07-19] MEDS ORDERED: Iopamidol 755 MG/ML 500 ML Multipack Bottle IVPUSH ONE (01:34)
[2022-07-19] MEDS ORDERED: Morphine 2 MG/ML SYRINGE ONE (04:34)
[2022-07-19] MEDS ORDERED: Morphine 4 MG/ML Syringe IVPUSH ONE ×3 (06:07→08:52)
[2022-07-19] MEDS ORDERED: Morphine 4 MG/ML Syringe ONE (06:12)
[2022-07-19 08:09] VITALS: BP 138/74; PULSE 108
[2022-07-19] MEDS ORDERED: Morphine 4 MG/ML Syringe IM ONE (08:47)
[2022-07-19] MEDS ORDERED: Enoxaparin 40 MG/0.4 ML Syringe SUBCUT ONE (09:00)
== END 2022-07-19 09:38 ==
LOC: MW.ED 23:18
DX: R07.89 Other chest pain (principal); R06.02 Shortness of breath; I13.2 Hypertensive heart and chronic kidney disease with heart failure and with stage 5 chronic kidney disease, or end stage renal disease; I50.9 Heart failure, unspecified; N18.6 End stage renal disease; E78.00 Pure hypercholesterolemia, unspecified; Z86.16 Personal history of COVID-19; Z79.899 Other long term (current) drug therapy; Z20.822 Contact with and (suspected) exposure to COVID-19
CPT/HCPCS: 0240U; 36415; 71045; 71275; 80053; 82803; 83735; 83880; 84484; 85025; 85379; 85610; 85730; 93005; 96372; 96374; 96376; 99285; A9270; J1650; J2270; Q9967; 93010

== ENCOUNTER 2023-07-28 23:15 | Emergency (ER) | payer MEDICARE, BC ==
[2023-07-28 23:40] VITALS: BP 125/74
[2023-07-28 23:53] VITALS: PULSE 112
== END 2023-07-28 23:53 ==
LOC: MW.ED 23:15
DX: Z02.89 Encounter for other administrative examinations (principal); I13.2 Hypertensive heart and chronic kidney disease with heart failure and with stage 5 chronic kidney disease, or end stage renal disease; I50.9 Heart failure, unspecified; N18.6 End stage renal disease; E78.00 Pure hypercholesterolemia, unspecified; Z75.8 Other problems related to medical facilities and other health care; Z88.2 Allergy status to sulfonamides; Z99.2 Dependence on renal dialysis; Z79.899 Other long term (current) drug therapy
CPT/HCPCS: 99283

== ENCOUNTER 2024-09-06 17:02 | Emergency (ER) | payer MEDICARE, BC ==
[2024-09-06 19:31] VITALS: BP 121/71; PULSE 98
== END 2024-09-06 19:29 | disposition home or self-care (01) ==
LOC: MW.ED 17:02
DX: H60.91 Unspecified otitis externa, right ear (principal); H66.92 Otitis media, unspecified, left ear; Z75.3 Unavailability and inaccessibility of health-care facilities; I11.0 Hypertensive heart disease with heart failure; I50.9 Heart failure, unspecified
CPT/HCPCS: 99282; 99283

== ENCOUNTER 2024-10-11 10:42 | Emergency (ER) | payer MEDICARE, BC ==
[2024-10-11] MEDS: Albuterol/Ipratropium 3.0-0.5 MG/3 ML Neb Soln NEB ONE ×2 (10:45→10:58)
[2024-10-11] MEDS ORDERED: Sodium Chloride 0.9% 10 ML Syringe FLUSH PRN (10:48)
[2024-10-11] MEDS ORDERED: Sodium Chloride 0.9% 2.5 ML Syringe FLUSH PRN (10:48)
[2024-10-11] MEDS ORDERED: Sodium Chloride 0.9% 20 ML SDV IV PRN (10:48)
[2024-10-11] MEDS: Albuterol/Ipratropium 3.0-0.5 MG/3 ML Neb Soln ONE ×2 (11:11)
[2024-10-11 11:15] LABS: BASOPHILS ABSOLUTE AUTO 0.02 K/uL (0.00-0.20); BASOPHILS PERCENT AUTO 0.4 % (0.0-1.0); EOSINOPHILS ABSOLUTE AUTO 0.09 K/uL (0.00-0.45); EOSINOPHILS PERCENT AUTO 1.6 % (0.0-6.0); HEMATOCRIT 30.1 % (42.0-52.0); HEMOGLOBIN 9.4 g/dL (14.0-18.0); IMMATURE GRAN ABSOLUTE AUTO 0.01 K/uL (0.00-0.05); IMMATURE GRAN PERCENT AUTO 0.2 % (0.0-0.4); LYMPHOCYTES ABSOLUTE AUTO 0.62 K/uL (1.00-4.80); LYMPHOCYTES PERCENT AUTO 10.9 % (24.0-44.0); MEAN CORPUSCULAR HEMOGLOBIN 32.3 pg (28.0-32.0); MEAN CORPUSCULAR HGB CONC 31.2 g/dL (32.0-36.0); MEAN CORPUSCULAR VOLUME 103.4 fL (83.0-99.0); MEAN PLATELET VOLUME 10.1 fL (9.4-12.4); MONOCYTES ABSOLUTE AUTO 0.44 K/uL (0.00-0.80); MONOCYTES PERCENT AUTO 7.7 % (0.0-8.0); NEUTROPHILS ABSOLUTE AUTO 4.52 K/uL (1.80-7.70); NEUTROPHILS PERCENT AUTO 79.2 % (41.0-71.0); PLATELET COUNT,PLT 133 K/uL (150-400); RED BLOOD CELL COUNT 2.91 M/uL (4.52-5.90)
[2024-10-11 11:59] LABS: ALBUMIN 3.2 g/dL (3.4-5.0); BILIRUBIN TOTAL 0.4 mg/dL (0.2-1.0); CALCIUM 8.4 mg/dL (8.5-10.1); CARBON DIOXIDE,CO2 28.3 mmol/L (21.0-32.0); CREATININE 13.2 mg/dL (0.8-1.3); EST CRCL DRUG DOSING (CG) 5.99 mL/min; POTASSIUM,K 5.1 mmol/L (3.5-5.1); PROTEIN TOTAL,TP 6.4 g/dL (6.4-8.2)
[2024-10-11 14:22] VITALS: BP 119/65; PULSE 106
== END 2024-10-11 15:40 ==
LOC: MW.ED 10:42
DX: I13.2 Hypertensive heart and chronic kidney disease with heart failure and with stage 5 chronic kidney disease, or end stage renal disease (principal); N18.6 End stage renal disease; I50.9 Heart failure, unspecified; E79.89 Other specified disorders of purine and pyrimidine metabolism; E78.00 Pure hypercholesterolemia, unspecified; Z88.8 Allergy status to other drugs, medicaments and biological substances; Z79.51 Long term (current) use of inhaled steroids; Z99.2 Dependence on renal dialysis
CPT/HCPCS: 36415; 70450; 71045; 71250; 72125; 74176; 80053; 83605; 83690; 83735; 83880; 84484; 85025; 93005; 94640; 99285; A9270; 99284

== ENCOUNTER 2024-10-18 18:17 | Emergency (ER) | payer MEDICARE, BC ==
[2024-10-18 18:38] LABS: BASOPHILS ABSOLUTE AUTO 0.02 K/uL (0.00-0.20); BASOPHILS PERCENT AUTO 0.3 % (0.0-1.0); EOSINOPHILS ABSOLUTE AUTO 0.16 K/uL (0.00-0.45); EOSINOPHILS PERCENT AUTO 2.6 % (0.0-6.0); HEMATOCRIT 30.4 % (42.0-52.0); HEMOGLOBIN 9.8 g/dL (14.0-18.0); IMMATURE GRAN ABSOLUTE AUTO 0.03 K/uL (0.00-0.05); IMMATURE GRAN PERCENT AUTO 0.5 % (0.0-0.4); LYMPHOCYTES ABSOLUTE AUTO 0.62 K/uL (1.00-4.80); LYMPHOCYTES PERCENT AUTO 10.1 % (24.0-44.0); MEAN CORPUSCULAR HEMOGLOBIN 32.1 pg (28.0-32.0); MEAN CORPUSCULAR HGB CONC 32.2 g/dL (32.0-36.0); MEAN CORPUSCULAR VOLUME 99.7 fL (83.0-99.0); MEAN PLATELET VOLUME 10.1 fL (9.4-12.4); MONOCYTES ABSOLUTE AUTO 0.53 K/uL (0.00-0.80); MONOCYTES PERCENT AUTO 8.6 % (0.0-8.0); NEUTROPHILS ABSOLUTE AUTO 4.78 K/uL (1.80-7.70); NEUTROPHILS PERCENT AUTO 77.9 % (41.0-71.0); PLATELET COUNT,PLT 147 K/uL (150-400); RED BLOOD CELL COUNT 3.05 M/uL (4.52-5.90); WHITE BLOOD CELL COUNT,WBC 6.14 K/uL (3.9-11.3)
[2024-10-18 19:06] LABS: A/G RATIO 0.9 (0.9-1.6); ALBUMIN 3.4 g/dL (3.4-5.0); BILIRUBIN TOTAL 0.6 mg/dL (0.2-1.0); CALCIUM 9.8 mg/dL (8.5-10.1); CARBON DIOXIDE,CO2 29.6 mmol/L (21.0-32.0); CREATININE 9.2 mg/dL (0.8-1.3); EST CRCL DRUG DOSING (CG) 8.6 mL/min
[2024-10-18 21:25] VITALS: BP 114/69; PULSE 90
== END 2024-10-18 21:24 | disposition home or self-care (01) ==
LOC: MW.ED 18:17
DX: I13.2 Hypertensive heart and chronic kidney disease with heart failure and with stage 5 chronic kidney disease, or end stage renal disease (principal); I50.9 Heart failure, unspecified; N18.6 End stage renal disease; R53.83 Other fatigue; E78.00 Pure hypercholesterolemia, unspecified; Z88.8 Allergy status to other drugs, medicaments and biological substances; Z79.51 Long term (current) use of inhaled steroids; Z99.2 Dependence on renal dialysis
CPT/HCPCS: 36415; 71045; 71045-26; 80053; 83690; 83880; 84484; 85025; 93005; 93010; 99284; 99285

== ENCOUNTER 2024-10-20 17:24 | Emergency (ER) | payer MEDICARE, BC ==
[2024-10-20 17:53] LABS: BASOPHILS ABSOLUTE AUTO 0.03 K/uL (0.00-0.20); BASOPHILS PERCENT AUTO 0.5 % (0.0-1.0); EOSINOPHILS ABSOLUTE AUTO 0.13 K/uL (0.00-0.45); EOSINOPHILS PERCENT AUTO 2.3 % (0.0-6.0); HEMATOCRIT 30.7 % (42.0-52.0); HEMOGLOBIN 9.7 g/dL (14.0-18.0); IMMATURE GRAN ABSOLUTE AUTO 0.02 K/uL (0.00-0.05); IMMATURE GRAN PERCENT AUTO 0.4 % (0.0-0.4); LYMPHOCYTES ABSOLUTE AUTO 0.65 K/uL (1.00-4.80); LYMPHOCYTES PERCENT AUTO 11.7 % (24.0-44.0); MEAN CORPUSCULAR HGB CONC 31.6 g/dL (32.0-36.0); MEAN CORPUSCULAR VOLUME 101.3 fL (83.0-99.0); MEAN PLATELET VOLUME 9.8 fL (9.4-12.4); MONOCYTES ABSOLUTE AUTO 0.57 K/uL (0.00-0.80); MONOCYTES PERCENT AUTO 10.3 % (0.0-8.0); NEUTROPHILS ABSOLUTE AUTO 4.16 K/uL (1.80-7.70); NEUTROPHILS PERCENT AUTO 74.8 % (41.0-71.0); PLATELET COUNT,PLT 151 K/uL (150-400); RED BLOOD CELL COUNT 3.03 M/uL (4.52-5.90); WHITE BLOOD CELL COUNT,WBC 5.56 K/uL (3.9-11.3)
[2024-10-20 18:02] LABS: INR 1.08 (0.86-1.11); PTT,PARTIAL THROMBOPLSTIN TIME 28.4 SEC (23.9-30.7)
[2024-10-20 18:16] LABS: ALANINE AMINOTRANSFERASE,ALT 17 IU/L (14-63); ALBUMIN 3.3 g/dL (3.4-5.0); ALKALINE PHOSPHATASE 122 U/L (46-116); ASPARTATE AMNIOTRANSFERASE,AST 7 IU/L (15-37); BILIRUBIN TOTAL 0.5 mg/dL (0.2-1.0); BLOOD UREA NITROGEN,BUN 51 mg/dL (7.0-18.0); CALCIUM 8.8 mg/dL (8.5-10.1); CARBON DIOXIDE,CO2 35.8 mmol/L (21.0-32.0); CHLORIDE,CL 99 mmol/L (98-107); CREATININE 6.7 mg/dL (0.8-1.3); GLUCOSE RANDOM 96 mg/dL (74-106); LIPASE 124 U/L (16-77); MAGNESIUM 1.9 mg/dL (1.8-2.4); PROTEIN TOTAL,TP 6.6 g/dL (6.4-8.2); SODIUM,NA 138 mmol/L (136-148)
[2024-10-20 18:21] LABS: ESTIMATED GFR 9 mL/min (>60)
[2024-10-20 19:47] VITALS: BP 90/62; PULSE 88
== END 2024-10-20 19:47 | disposition home or self-care (01) ==
LOC: MW.ED 17:24
DX: I13.2 Hypertensive heart and chronic kidney disease with heart failure and with stage 5 chronic kidney disease, or end stage renal disease (principal); N18.6 End stage renal disease; I50.9 Heart failure, unspecified; Z99.2 Dependence on renal dialysis; Z88.8 Allergy status to other drugs, medicaments and biological substances; Z79.51 Long term (current) use of inhaled steroids
CPT/HCPCS: 36415; 71045; 71045-26; 80053; 83690; 83735; 83880; 84484; 85025; 85610; 85730; 93005; 93010; 99283